=== PATIENT | female | born 1985 | race Caucasian/White ===

== ENCOUNTER 2018-10-17 20:01 | Emergency (ER) | payer BC ==
[2018-10-17 20:33] VITALS: BP 109/63; PULSE 50; RESP 20; TEMP 97.9
--- NOTE | 2018-10-17 21:22 | ED ---
Burn/Smoke HPI - General Chief complaint: Burn/Smoke Inhalation Stated complaint: Burn Lft Breast Time Seen by Provider: 10/17/18 20:36 Source: patient Mode of arrival: wheelchair Limitations: no limitations - History of Present Illness Initial comments: 33-year-old female patient presents to the emergency department today for evaluation of a burn to the left nipple. Patient is 6 weeks and is breast-feeding. States she developed mastitis to the left breast within the last week. Patient states she was applying hot compresses and Epsom salt soaks however they water was too high and she burned of the nipple on the left breast. Patient states that she was seen at urgent care on Tuesday and given prescription for Keflex as well as mupirocin ointment to apply to the burn. Patient states that she has been unable to express milk from the breast this evening and is concerned it is scabbed over. Patient denies any fevers or chills with this. States she is having some discomfort related to engorgement. She denies any fever or chills with this. Denies any drainage from the wound. Patient denies any recent rash, shortness breath, chest pain, abdominal pain, nausea, vomiting, diarrhea, constipation, back pain, numbness, tingling, dizziness, weakness, hematuria, dysuria, urinary urgency, urinary frequency, headache, visual changes, or any other complaints. - Related Data Home Medications Medication Instructions Recorded Confirmed Baclofen 5 mg PO DAILY 10/17/18 10/17/18 Cephalexin [Keflex] 500 mg PO Q6HR 10/17/18 10/17/18 Gabapentin [Neurontin] 100 mg PO BID 10/17/18 10/17/18 Oxybutynin ER [Ditropan Xl] 15 mg PO BID 10/17/18 10/17/18 Allergies Allergy/AdvReac Type Severity Reaction Status Date / Time No Known Allergies Allergy Verified 10/17/18 20:57 Review of Systems ROS Statement: Those systems with pertinent positive or pertinent negative responses have been documented in the HPI. ROS Other: All systems not noted in ROS Statement are negative. Past Medical History Additional Past Medical History / Comment(s): spinal cord injury History of Any Multi-Drug Resistant Organisms: None Reported Additional Past Surgical History / Comment(s): spinal fusion, spleen embolism Past Psychological History: No Psychological Hx Reported Smoking Status: Never smoker Past Alcohol Use History: None Reported Past Drug Use History: None Reported General Exam Limitations: no limitations General appearance: alert, in no apparent distress, other (This is a well- developed, well-nourished adult female patient in no acute distress. Vital signs upon presentation are temperature 97.9F, pulse 50, respirations 20, blood pressure 109/63, pulse ox 100% on room air.) Respiratory exam: Present: normal lung sounds bilaterally. Absent: respiratory distress, wheezes, rales, rhonchi, stridor Cardiovascular Exam: Present: regular rate, normal rhythm, normal heart sounds. Absent: systolic murmur, diastolic murmur, rubs, gallop, clicks Neurological exam: Present: alert, oriented X3, CN II-XII intact Psychiatric exam: Present: normal affect, normal mood Skin exam: Present: warm, dry, intact, normal color. Absent: rash Expanded 1 - There is a superficial partial-thickness burn noted to the left area over and the nipple. No current drainage however there is granulation tissue with overlying white discharge. Scabbing noted over the nipple. Erythema noted to follow duct paths at 11 O'clock and 1 o'clock on the breast. Course Vital Signs 10/17/18 20:28 Temperature 97.9 F Pulse Rate 50 L Respiratory 20 Rate Blood Pressure 109/63 O2 Sat by Pulse 100 Oximetry Medical Decision Making - Medical Decision Making 33-year-old female patient presented to the emergency department today for evaluation of burn to the left nipple. Physical examination did reveal healing superficial partial thickness burn to the left areola and nipple. Patient is concerned she is having decreased output from the left breast. Patient was educated regarding wound care, given prescription for arcus also her dressings which she requested, did inform patient of risk of skin discoloration with use of this dressing. She was instructed to apply warm compresses and to massage the breast to help milk expression. She is instructed to follow-up with the [facility] and content management consultant for recheck as soon as possible. She is urged to continue taking the Keflex for infection. Return parameters were discussed in detail. She verbalizes understanding and agrees with this plan. Disposition Clinical Impression: Burn of breast, left, second degree Disposition: HOME SELF-CARE Condition: Good Instructions (If sedation given, give patient instructions): Second Degree Burn (ED) Additional Instructions: Use dressings as directed. Follow up with your OBGYN as soon as possible. Apply warm compresses to the breast and perform massage to the breast to aid in expressing milk. Return to the emergency department for any new, worse, or co ncerning symptoms. Is patient prescribed a controlled substance at d/c from ED?: No Referrals: Anselmo Tiwari MD [Primary Care Provider] - 1-2 days Time of Disposition: 21:22
== END 2018-10-17 21:25 | disposition home or self-care (01) ==
LOC: EC 20:01
DX: O90.89 Other complications of the puerperium, not elsewhere classified (principal); T21.21XA Burn of second degree of chest wall, initial encounter; Z79.899 Other long term (current) drug therapy; X08.8XXA Exposure to other specified smoke, fire and flames, initial encounter
CPT/HCPCS: 99282

== ENCOUNTER 2020-03-04 10:58 | Inpatient (IN) | payer BC ==
[2020-03-04] MEDS ORDERED: SODIUM CHLORIDE 0.9% 1,000 ML IV ONE ×2 (11:15→14:33)
--- NOTE | 2020-03-04 11:24 | ED ---
General Adult HPI - General Chief complaint: Recheck/Abnormal Lab/Rx Stated complaint: 19 Weeks Preg, Low BP Time Seen by Provider: 03/04/20 11:07 Source: patient, RN notes reviewed, old records reviewed Mode of arrival: wheelchair Limitations: physical limitation - History of Present Illness Initial comments: 35-year-old female patient past history of spinal cord injury with rales cyst and decreased sensation from the chest down presents ED for evaluation. Patient is a who is approximately 19 weeks gestation. She reports that the last 2 days she states that she feels as if she is getting a urinary tract infection. Her urine has been slightly discolored. She reports that she went to urgent care today and her blood pressure was 90 systolically and heart rate was elevated. She also reports that she had a fever this morning 102F. She did take Tylenol. Denies any cough or congestion. Denies being around any sick people and states she does not believe that she could've acquired Covid. Denies any abdominal pain or vaginal bleeding. Systemic: Pt denies fatigue, rash. Pt denies weakness, night sweats, weight loss. Neuro: Pt denies headache, visual disturbances, syncope or pre-syncope. HEENT: Pt denies ocular discharge or irritation, otalgia, rhinorrhea, pharyngitis or notable lymphadenopathy. Cardiopulmonary: Pt denies chest pain, SOB, heart palpitations, dyspnea on exertion. Abdominal/GI: Pt denies abdominal pain, n/v/d. MSK: Pt denies myalgia, loss of strength or function in extremities. Neuro: Pt denies new onset weakness, paresthesias. - Related Data Home Medications Medication Instructions Recorded Confirmed Gabapentin [Neurontin] 100 mg PO BID 10/17/18 03/04/20 Oxybutynin ER [Ditropan Xl] 15 mg PO BID 10/17/18 03/04/20 Baclofen 10 mg PO BID 03/04/20 03/04/20 Cbp-Kquf-Nzqlf Acid 1 cap PO DAILY 03/04/20 03/04/20 [-U Capsule (formulary)] Allergies Allergy/AdvReac Type Severity Reaction Status Date / Time No Known Allergies Allergy Verified 03/04/20 13:15 Review of Systems ROS Statement: Those systems with pertinent positive or pertinent negative responses have been documented in the HPI. ROS Other: All systems not noted in ROS Statement are negative. Past Medical History Additional Past Medical History / Comment(s): spinal cord injury History of Any Multi-Drug Resistant Organisms: None Reported Additional Past Surgical History / Comment(s): spinal fusion, spleen embolism Past Psychological History: No Psychological Hx Reported Smoking Status: Never smoker Past Alcohol Use History: None Reported Past Drug Use History: None Reported General Exam - General Exam Comments Initial Comments: Constitutional: NAD, AOX3, Pt has pleasant affect. HEENT: NC/AT, trachea midline, neck supple, no lymphadenopathy. External ears appear normal, without discharge. Mucous membranes moist. Eyes PERRLA, EOM intact. There is no scleral icterus. No pallor noted. Cardiopulmonary: RRR, no murmurs, rubs or gallops, no JVD noted. Lungs CTAB in anterior and posterior welch. No peripheral edema. Abdominal exam: Abdomen soft and non-distended. Abdomen non-tender to palpation in all 4 quadrants. Bowel sounds active in LLQ. No hepatosplenomegaly. No ecchymosis Neuro: CN II-XII grossly intact. No nuchal rigidity. No raccon eyes, no espinoza sign, no hemotympanum. No cervical spinal tenderness. MSK: lower and upper extremities examined. No erythema or signs of infection. No areas of tenderness. The gluteal region examined no ulcers or signs of infection. Limitations: physical limitation Course Vital Signs 03/04/20 03/04/20 03/04/20 10:59 12:04 12:35 Temperature 98.3 F 99.2 F 103.1 F H Pulse Rate 94 Respiratory 16 Rate Blood Pressure 105/58 O2 Sat by Pulse 100 Oximetry 03/04/20 14:20 Temperature 103.2 F H Pulse Rate Respiratory Rate Blood Pressure O2 Sat by Pulse Oximetry Medical Decision Making - Medical Decision Making 35-year-old female patient presents to ED for evaluation. Patient has been having some urinary changes last few days. 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 Patient will signs initially stable. He did become febrile and patient was administered antipyretics. Physical exam didn't display acute pathology. Laboratory investigations significant for leukocytosis and urinary tract infection. Ultrasound displayed viable . Patient initiated on IV antibiotics and fluids will be admitted for urinary tract infection, sepsis. COVID test pending. Patient has no upper respiratory symptoms. Case discussed in depth with Dr. Barkley. - Lab Data Result diagrams: 03/04/20 11:41 03/04/20 11:41 Lab Results 03/04/20 03/04/20 03/04/20 Range/Units 11:41 11:41 11:41 WBC 23.2 H (3.8-10.6) k/uL RBC 3.93 (3.80-5.40) m/uL Hgb 12.1 (11.4-16.0) gm/dL Hct 36.8 (34.0-46.0) % MCV 93.6 (80.0-100.0) fL MCH 30.7 (25.0-35.0) pg MCHC 32.8 (31.0-37.0) g/dL RDW 13.0 (11.5-15.5) % Plt Count 350 (150-450) k/uL Neutrophils % 89 % Lymphocytes % 5 % Monocytes % 5 % Eosinophils % 0 % Basophils % 0 % Neutrophils # 20.8 H (1.3-7.7) k/uL Lymphocytes # 1.2 (1.0-4.8) k/uL Monocytes # 1.1 H (0-1.0) k/uL Eosinophils # 0.1 (0-0.7) k/uL Basophils # 0.1 (0-0.2) k/uL Sodium 133 L (137-145) mmol/L Potassium 3.6 (3.5-5.1) mmol/L Chloride 102 (98-107) mmol/L Carbon Dioxide 20 L (22-30) mmol/L Anion Gap 11 mmol/L BUN 6 L (7-17) mg/dL Creatinine 0.52 (0.52-1.04) mg/dL Est GFR (CKD-EPI)AfAm >90 (>60 ml/min/1.73 sqM) Est GFR (CKD-EPI)NonAf >90 (>60 ml/min/1.73 sqM) Glucose 77 (74-99) mg/dL Calcium 9.0 (8.4-10.2) mg/dL Total Bilirubin 0.6 (0.2-1.3) mg/dL AST 23 (14-36) U/L ALT 12 (4-34) U/L Alkaline Phosphatase 79 (38-126) U/L Total Protein 6.9 (6.3-8.2) g/dL Albumin 3.9 (3.5-5.0) g/dL Urine Color Light Yellow Urine Appearance Clear (Clear) Urine pH 6.0 (5.0-8.0) Ur Specific [place] 1.003 (1.001-1.035) Urine Protein Negative (Negative) Urine Glucose (UA) Negative (Negative) Urine Ketones 1+ H (Negative) Urine Blood Negative (Negative) Urine Nitrite Negative (Negative) Urine Bilirubin Negative (Negative) Urine Urobilinogen <2.0 (<2.0) mg/dL Ur Leukocyte Esterase Large H (Negative) Urine RBC <1 (0-5) /hpf Urine WBC 15 H (0-5) /hpf Ur Squamous Epith Cells 1 (0-4) /hpf Urine Mucus Rare H (None) /hpf Disposition Clinical Impression: UTI (urinary tract infection), Fever, Disposition: ADMITTED IP TO THIS [facility] Condition: Serious Is patient prescribed a controlled substance at d/c from ED?: No Referrals: Anselmo Tiwari MD [Primary Care Provider] - 1-2 days
[2020-03-04] MEDS ORDERED: cefTRIAXone IN SWFI 1,000 MG/10 ML SYRINGE IVP STA ×2 (11:40→12:57)
[2020-03-04 12:34] LABS: Basophils # (A) 0.1 k/uL (0-0.2); Basophils % (A) 0 %; Eosinophils # (A) 0.1 k/uL (0-0.7); Eosinophils % (A) 0 %; HCT 36.8 % (34.0-46.0); HGB 12.1 gm/dL (11.4-16.0); Lymphocytes # (A) 1.2 k/uL (1.0-4.8); Lymphocytes % (A) 5 %; MCH 30.7 pg (25.0-35.0); MCHC 32.8 g/dL (31.0-37.0); MCV 93.6 fL (80.0-100.0); Mean Platelet Volume 7.7; Monocytes # (A) 1.1 k/uL (0-1.0); Monocytes % (A) 5 %; Neutrophils # (A) 20.8 k/uL (1.3-7.7); Neutrophils % (A) 89 %; Platelet Count 350 k/uL (150-450); RBC 3.93 m/uL (3.80-5.40); WBC 23.2 k/uL (3.8-10.6)
[2020-03-04] MEDS ORDERED: ACETAMINOPHEN TAB 325 MG TAB PO STA ×2 (12:37→13:52)
[2020-03-04 12:41] LABS: ALT 12 U/L (4-34); AST 23 U/L (14-36); African American GFR (CKD) >90 (>60 ml/min/1.73 sqM); Albumin 3.9 g/dL (3.5-5.0); Alkaline Phosphatase 79 U/L (38-126); Anion Gap 11 mmol/L; Blood Urea Nitrogen 6 mg/dL (7-17); Carbon Dioxide 20 mmol/L (22-30); Chloride 102 mmol/L (98-107); Glucose 77 mg/dL (74-99); Non-African American GFR(CKD) >90 (>60 ml/min/1.73 sqM); Potassium 3.6 mmol/L (3.5-5.1); Sodium 133 mmol/L (137-145); Total Bilirubin 0.6 mg/dL (0.2-1.3); Total Protein 6.9 g/dL (6.3-8.2)
[2020-03-04 12:48] LABS: Appearance,Urine Clear (Clear); Bilirubin,Urine Negative (Negative); Blood,Urine Negative (Negative); Color,Urine Light Yellow; Glucose,Urine (UA) Negative (Negative); Ketones,Urine 1+ (Negative); Leukocyte Esterase,Urine Large (Negative); Mucus,Urine Rare /hpf; Nitrite,Urine Negative (Negative); Protein,Urine Negative (Negative); RBC,Urine <1 /hpf (0-5); Specific Gravity,Urine 1.003 (1.001-1.035); Squamous Epithelial Cell,Urine 1 /hpf (0-4); Urobilinogen,Urine <2.0 mg/dL (<2.0); WBC,Urine 15 /hpf (0-5)
--- NOTE | 2020-03-04 13:29 | US ---
EXAMINATION TYPE: US OB >= 14 wk fetus DATE OF EXAM: 03/04/2020 COMPARISON: None CLINICAL HISTORY: fever TECHNIQUE: Transabdominal (TA) GESTATIONAL AGE / DATING Physician Established: (19 weeks/2 days) EDC: 07/27/2020 Dates by Current Scan: (19 weeks/5 days) EDC: 07/24/2020 Beta HCG (if available): Not available at this time SURVEY IUP: Single PLACENTA: Anterior PREVIA: No Previa JAISON: 14.9 cm Normal CERVICAL LENGTH (transabdominal: norm > 3.0cm): 3.5 cm BIOMETRY PRESENTATION: Transverse lie with head to maternal right BPD: 4.5 cm 19 weeks / 4 days HC: 16.9 cm 19 weeks / 4 days AC: 14.6 cm 20 weeks / 0 days FL: 3.0 cm 19 weeks / 2 days ESTIMATED WEIGHT IN GRAMS: 301 grams ESTIMATED WEIGHT IN LBS/OZ: 0 lbs. 11 oz. WEIGHT PERCENTAGE BASED ON ESTABLISHED DATES: 64% HC/AC: Normal FL/AC: Normal HEART RATE: 150 bpm RHYTHM: Normal Single live intrauterine gestation is present. Transverse presentation seen currently. No ultrasound evidence for placenta previa. Amniotic fluid index calculated within normal limits. No cervical thinn ing noted. biometry measurements concordant and within normal limits. IMPRESSION: As above.
[2020-03-04] MEDS: SODIUM CHLORIDE 0.9% 1,000 ML IV SCH (14:36)
[2020-03-04] MEDS ORDERED: ONDANSETRON 4 MG/2 ML VIAL IVP PRN (18:15)
[2020-03-04] MEDS: ACETAMINOPHEN TAB 325 MG TAB PO PRN ×2 (18:18→23:52)
[2020-03-04] MEDS: BACLOFEN 10 MG TAB PO SCH (20:27)
[2020-03-04] MEDS: OXYBUTYNIN 15 MG TAB.ER.24 PO SCH (20:27)
[2020-03-04] MEDS: GABAPENTIN 100 MG CAP PO SCH (20:27)
[2020-03-05] MEDS: SODIUM CHLORIDE 0.9% 1,000 ML IV SCH ×2 (00:02→17:25)
--- NOTE | 2020-03-05 00:44 | P.HPIM ---
History of Present Illness H&P Date: 03/04/20 Chief Complaint: Fever Patient is a 34-year-old female with a known history of spinal cord injury, spinal fusion and splenic embolization and is currently 19 weeks intrauterine came to ER due to urinary tract infection. Patient initially went to urgent care facility due to increasing urine frequency and slightly discolored urine and she felt like she was getting urinary tract infection. Patient was found to have tachycardia and hypotension and was referred to ER for further management. Patient was febrile with T-max of 102 F. Denied any lower abdominal pain. No complaints of chest pain or shortness of breath. Patient does have nausea. T- max on admission was 103.2 and was tachycardic. Laboratory data showed WBC 23.2 Hemoglobin 12.1 and platelets 350 Sodium 133, potassium 3.6, BUN 16 creatinine 0.52 Lactic acid 0.6 Urinalysis showed large leukocyte esterase 1+ ketones and 15 WBCs. ultrasound was done showed single live intrauterine gestation is present. Review of Systems Constitutional: Patient does have fever. No chills. . No generalized weakness or weight loss. Abdomen: Patient denied nausea vomiting and diarrhea and abdominal pain. Cardiovascular: Patient denies any chest pain or short of breath no palpitations. Respiratory: patient denied any cough is from production. No shortness of breath Neurologic: Patient denied any numbness or tingling headache. Musculoskeletal: Patient denies any complaints of joint swelling or deformity. Skin: Negative Psychiatric: Negative Endocrine: No heat or cold intolerance. No recent weight gain. Genitourinary: No dysuria or hematuria. increased urinary frequency All other 14 point ROS negative except the above Past Medical History Additional Past Medical History / Comment(s): spinal cord injury History of Any Multi-Drug Resistant Organisms: None Reported Additional Past Surgical History / Comment(s): spinal fusion, spleen embolism Past Psychological History: No Psychological Hx Reported Smoking Status: Never smoker Past Alcohol Use History: None Reported Past Drug Use History: None Reported - Past Family History Mother Family Medical History: Diabetes Mellitus, Hypertension Medications and Allergies Home Medications Medication Instructions Recorded Confirmed Type Gabapentin [Neurontin] 100 mg PO BID 10/17/18 03/04/20 History Oxybutynin ER [Ditropan Xl] 15 mg PO BID 10/17/18 03/04/20 History Baclofen 10 mg PO BID 03/04/20 03/04/20 History Vnu-Hbgr-Hrvik Acid 1 cap PO DAILY 03/04/20 03/04/20 History [-U Capsule (formulary)] Allergies Allergy/AdvReac Type Severity Reaction Status Date / Time No Known Allergies Allergy Verified 03/04/20 13:15 Physical Exam Vitals: Vital Signs Temp Pulse Resp BP Pulse Ox 03/04/20 16:02 99.2 F 100 16 101/50 98 03/04/20 14:20 103.2 F H 03/04/20 12:35 103.1 F H 03/04/20 12:04 99.2 F 03/04/20 10:59 98.3 F 94 16 105/58 100 Intake and Output 03/04/20 03/04/20 03/04/20 06:59 14:59 22:59 Other: Weight 65.771 kg PHYSICAL EXAMINATION: Patient is lying in the bed comfortably, no acute distress, awake alert and oriented.. HEENT: Normocephalic. Neck is supple. Pupils reactive. Nostrils clear. Oral cavity is moist. Ears reveal no drainage. Neck reveals no JVD, carotid bruits, or thyromegaly. CHEST EXAMINATION: Trachea is central. Symmetrical expansion. Lung welch clear to auscultation and percussion. CARDIAC: Normal S1, S2 with no gallops. No murmurs ABDOMEN: Soft. Bowel sounds normal. No organomegaly. No abdominal bruits. Extremities: reveal no edema. No clubbing or cyanosis Neurologically awake, alert, oriented x3 with well-coordinated movements. No gross neurological deficit. Decreased sensation in the bilateral lower extremities. Skin: No rash or skin lesions. Psychiatric: Coperative. Nonsuicidal Musculoskeletal: No joint swelling or deformity. Normal range of motion. Results CBC & Chem 7: 03/04/20 11:41 03/04/20 11:41 Labs: Abnormal Lab Results - Last 24 Hours (Table) 03/04/20 03/04/20 03/04/20 Range/Units 11:41 11:41 11:41 WBC 23.2 H (3.8-10.6) k/uL Neutrophils # 20.8 H (1.3-7.7) k/uL Monocytes # 1.1 H (0-1.0) k/uL Sodium 133 L (137-145) mmol/L Carbon Dioxide 20 L (22-30) mmol/L BUN 6 L (7-17) mg/dL Urine Ketones 1+ H (Negative) Ur Leukocyte Esterase Large H (Negative) Urine WBC 15 H (0-5) /hpf Urine Mucus Rare H (None) /hpf Thrombosis Risk Factor Assmnt - DVT/VTE Prophylaxis DVT/VTE Prophylaxis: Pharmacologic Prophylaxis ordered Assessment and Plan Assessment: Acute urinary tract infection Sepsis secondary to urine tract infection 19-week intrauterine History of spinal cord injury and decreased sensation from the chest down History of splenic embolization DVT prophylaxis with early ambulation Plan: Patient will be continued on IV hydration and antibiotics for home ceftriaxone. Follow-up urine culture reports. Continue with home medications and follow-up closely. Discussed with the patient and her family at bedside in detail. Time with Patient: Greater than 30
[2020-03-05 06:57] LABS: Basophils % (A) 0 %; Eosinophils % (A) 0 %; HCT 30.6 % (34.0-46.0); Lymphocytes # (A) 1.9 k/uL (1.0-4.8); Lymphocytes % (A) 9 %; MCH 30.8 pg (25.0-35.0); MCHC 32.6 g/dL (31.0-37.0); MCV 94.4 fL (80.0-100.0); Mean Platelet Volume 7.2; Monocytes # (A) 0.9 k/uL (0-1.0); Monocytes % (A) 4 %; Neutrophils # (A) 18.4 k/uL (1.3-7.7); Neutrophils % (A) 86 %; Platelet Count 282 k/uL (150-450); RBC 3.24 m/uL (3.80-5.40); RDW 13.2 % (11.5-15.5); WBC 21.5 k/uL (3.8-10.6)
[2020-03-05 07:05] LABS: African American GFR (CKD) >90 (>60 ml/min/1.73 sqM); Anion Gap 5 mmol/L; Blood Urea Nitrogen 3 mg/dL (7-17); Calcium 7.3 mg/dL (8.4-10.2); Carbon Dioxide 18 mmol/L (22-30); Chloride 112 mmol/L (98-107); Glucose 80 mg/dL (74-99); Non-African American GFR(CKD) >90 (>60 ml/min/1.73 sqM); Potassium 3.2 mmol/L (3.5-5.1); Sodium 135 mmol/L (137-145)
[2020-03-05] MEDS: ACETAMINOPHEN TAB 325 MG TAB PO PRN ×3 (07:12→20:55)
[2020-03-05] MEDS: BACLOFEN 10 MG TAB PO SCH ×2 (08:48→20:55)
[2020-03-05] MEDS: GABAPENTIN 100 MG CAP PO SCH ×2 (08:48→20:56)
[2020-03-05] MEDS: OXYBUTYNIN 15 MG TAB.ER.24 PO SCH ×2 (08:50→21:35)
[2020-03-05] MEDS: PRENATAL VIT-IRON-FOLIC ACID 1 EACH CAP PO SCH (08:50)
[2020-03-05] MEDS ORDERED: Potassium Replacement Protocol 1 EACH MISC MISCELLANE PRN (15:34)
--- NOTE | 2020-03-05 21:06 | US ---
EXAMINATION TYPE: US kidneys/renal and bladder DATE OF EXAM: 03/05/2020 COMPARISON: US 2010 CLINICAL HISTORY: UTI. UTI. Hx known atrophic left kidney. Patient is 19 weeks . EXAM MEASUREMENTS: Right Kidney: 13.2 x 7.2 x 5.7 cm Left Kidney: Not visualized Right Kidney: Measures enlarged. Hypoechoic, mixed area seen lower pole measurin.7 x 1.5 x 1.4 cm . Left Kidney: Not visualized. Unable to visualize spleen. Bladder: Appears anechoic. Not fully distended. Bilateral Jets seen: Right jet seen IMPRESSION: Left kidney not visualized. Right kidney shows no evidence of mass or obstruction. There is right-kaylen ed ureteral jet. No left side ureteral jet. Appearance of the right kidney consistent with compensato ry hypertrophy.
[2020-03-06] MEDS: SODIUM CHLORIDE 0.9% 1,000 ML IV SCH ×2 (01:43→05:45)
[2020-03-06 07:28] LABS: HCT 29.5 % (34.0-46.0); HGB 9.5 gm/dL (11.4-16.0); MCH 30.5 pg (25.0-35.0); MCHC 32.3 g/dL (31.0-37.0); MCV 94.4 fL (80.0-100.0); Mean Platelet Volume 7.4; Platelet Count 290 k/uL (150-450); RBC 3.12 m/uL (3.80-5.40); RDW 13.4 % (11.5-15.5); WBC 17.7 k/uL (3.8-10.6)
[2020-03-06 07:57] LABS: African American GFR (CKD) >90 (>60 ml/min/1.73 sqM); Anion Gap 4 mmol/L; Blood Urea Nitrogen 3 mg/dL (7-17); Calcium 7.7 mg/dL (8.4-10.2); Carbon Dioxide 20 mmol/L (22-30); Chloride 112 mmol/L (98-107); Glucose 65 mg/dL (74-99); Non-African American GFR(CKD) >90 (>60 ml/min/1.73 sqM); Potassium 2.9 mmol/L (3.5-5.1); Sodium 136 mmol/L (137-145)
[2020-03-06 08:18] VITALS: RESP 16
[2020-03-06] MEDS: OXYBUTYNIN 15 MG TAB.ER.24 PO SCH (09:08)
[2020-03-06] MEDS: GABAPENTIN 100 MG CAP PO SCH (09:08)
[2020-03-06] MEDS: BACLOFEN 10 MG TAB PO SCH (09:08)
[2020-03-06] MEDS: ACETAMINOPHEN TAB 325 MG TAB PO PRN (09:08)
[2020-03-06] MEDS: PRENATAL VIT-IRON-FOLIC ACID 1 EACH CAP PO SCH (09:08)
[2020-03-06] MEDS: POTASSIUM CHLORIDE ER 20 MEQ TAB.ER PO SCH ×3 (12:44→15:35)
[2020-03-06 13:22] VITALS: BP 95/45; PULSE 62; TEMP 97.5
--- NOTE | 2020-03-18 21:37 | P.PN ---
Subjective Progress Note Date: 03/05/20 Principal diagnosis: Sepsis secondary to urine tract infection Patient is a 34-year-old female with a known history of spinal cord injury, spinal fusion and splenic embolization and is currently 19 weeks intrauterine came to ER due to urinary tract infection. Patient initially went to urgent care facility due to increasing urine frequency and slightly discolored urine and she felt like she was getting urinary tract infection. Patient was found to have tachycardia and hypotension and was referred to ER for further management. Patient was febrile with T-max of 102 F. Denied any lower abdominal pain. No complaints of chest pain or shortness of breath. Patient does have nausea. T- max on admission was 103.2 and was tachycardic. Laboratory data showed WBC 23.2 Hemoglobin 12.1 and platelets 350 Sodium 133, potassium 3.6, BUN 16 creatinine 0.52 Lactic acid 0.6 Urinalysis showed large leukocyte esterase 1+ ketones and 15 WBCs. ultrasound was done showed single live intrauterine gestation is present. Patient is currently lying in the bed comfortably. No complaints of abdominal pain. Patient is afebrile but last night T-max of 102 F. Leukocytosis improved with WBC count 21.5 today. Potassium level is 3.2. No complaints of abdominal pain. No nausea vomiting or diarrhea. Tolerating oral diet slowly. Patient is still feeling weak. Urine culture showed gram-negative bacilli and follow-up final culture report. Current medications reviewed. Objective - Vital Signs Vital signs: Vital Signs Temp 97.6 F 03/05/20 08:00 Pulse 81 03/05/20 16:00 Resp 16 03/05/20 16:00 BP 97/48 03/05/20 16:00 Pulse Ox 99 03/05/20 16:00 Intake & Output 03/05/20 03/05/20 03/06/20 06:59 18:59 06:59 Intake Total 960 Balance 960 Weight 71.5 kg Intake: Oral 960 Other: Voiding Method Toilet Toilet # Voids 2 4 - Exam PHYSICAL EXAMINATION: Patient is lying in the bed comfortably, no acute distress, awake alert and oriented.. HEENT: Normocephalic. Neck is supple. Pupils reactive. Nostrils clear. Oral cavity is moist. Ears reveal no drainage. Neck reveals no JVD, carotid bruits, or thyromegaly. CHEST EXAMINATION: Trachea is central. Symmetrical expansion. Lung welch clear to auscultation and percussion. CARDIAC: Normal S1, S2 with no gallops. No murmurs ABDOMEN: Soft. Bowel sounds normal. No organomegaly. No abdominal bruits. Extremities: reveal no edema. No clubbing or cyanosis Neurologically awake, alert, oriented x3 with well-coordinated movements. No gross neurological deficit. Decreased sensation in the bilateral lower extremities. Skin: No rash or skin lesions. Psychiatric: Coperative. Nonsuicidal Musculoskeletal: No joint swelling or deformity. Normal range of motion. - Labs CBC & Chem 7: 03/06/20 07:14 03/06/20 07:14 Labs: Abnormal Lab Results - Last 24 Hours (Table) 03/05/20 03/05/20 Range/Units 06:19 06:19 WBC 21.5 H (3.8-10.6) k/uL RBC 3.24 L (3.80-5.40) m/uL Hgb 10.0 L D (11.4-16.0) gm/dL Hct 30.6 L (34.0-46.0) % Neutrophils # 18.4 H (1.3-7.7) k/uL Sodium 135 L (137-145) mmol/L Potassium 3.2 L (3.5-5.1) mmol/L Chloride 112 H (98-107) mmol/L Carbon Dioxide 18 L (22-30) mmol/L BUN 3 L (7-17) mg/dL Calcium 7.3 L (8.4-10.2) mg/dL Microbiology - Last 24 Hours (Table) 03/04/20 11:41 Blood Culture - Preliminary Blood No Growth after 24 hours 03/04/20 11:41 Urine Culture - Preliminary Urine,Voided Assessment and Plan Assessment: Acute urinary tract infection Sepsis secondary to urine tract infection 19-week intrauterine History of spinal cord injury and decreased sensation from the chest down History of splenic embolization DVT prophylaxis with early ambulation Plan: Patient will be continued on IV hydration and antibiotics for home ceftriaxone. Urine culture showed gram-negative bacilli. Leukocytosis improving. Follow-up final urine culture report. Discussed with the patient and her family at bedside in detail. Time with Patient: Greater than 30
--- NOTE | 2020-03-18 21:45 | P.DS ---
Providers Date of admission: 03/04/20 15:12 Expected date of discharge: 03/06/20 Attending physician: Milagros Silverman Primary care physician: Anselmo [facility] Course: Discharge diagnosis Acute urinary tract infection Sepsis secondary to urine tract infection 19-week intrauterine History of spinal cord injury and decreased sensation from the chest down History of splenic embolization DVT prophylaxis with early ambulation Hospital course Patient is a 34-year-old female with a known history of spinal cord injury, spinal fusion and splenic embolization and is currently 19 weeks intrauterine came to ER due to urinary tract infection. Patient initially went to urgent care facility due to increasing urine frequency and slightly discolored urine and she felt like she was getting urinary tract infection. Patient was found to have tachycardia and hypotension and was referred to ER for further management. Patient was febrile with T-max of 102 F. Denied any lower abdominal pain. No complaints of chest pain or shortness of breath. Patient does have nausea. T- max on admission was 103.2 and was tachycardic. Laboratory data showed WBC 23.2 Hemoglobin 12.1 and platelets 350 Sodium 133, potassium 3.6, BUN 16 creatinine 0.52 Lactic acid 0.6 Urinalysis showed large leukocyte esterase 1+ ketones and 15 WBCs. ultrasound was done showed single live intrauterine gestation is present. 03/05/2020 Patient is currently lying in the bed comfortably. No complaints of abdominal pain. Patient is afebrile but last night T-max of 102 F. Leukocytosis impro berenice with WBC count 21.5 today. Potassium level is 3.2. No complaints of abdominal pain. No nausea vomiting or diarrhea. Tolerating oral diet slowly. Patient is still feeling weak. Urine culture showed gram-negative bacilli and follow-up final culture report. 03/06/2020 Patient is currently awake alert and oriented x3. No complaints of fever or chills. Leukocytosis is improving. Final urine culture is pending at this time. Patient states that she is feeling better and wants to be discharged home. Patient does have appointment with [employer] in the next 1 to 2 days. Patient was strongly recommended to follow-up with urine culture reports and adjust medications as needed. PHYSICAL EXAMINATION: Patient is lying in the bed comfortably, no acute distress, awake alert and oriented.. HEENT: Normocephalic. Neck is supple. Pupils reactive. Nostrils clear. Oral cavity is moist. Ears reveal no drainage. Neck reveals no JVD, carotid bruits, or thyromegaly. CHEST EXAMINATION: Trachea is central. Symmetrical expansion. Lung welch clear to auscultation and percussion. CARDIAC: Normal S1, S2 with no gallops. No murmurs ABDOMEN: Soft. Bowel sounds normal. No organomegaly. No abdominal bruits. Extremities: reveal no edema. No clubbing or cyanosis Neurologically awake, alert, oriented x3 with well-coordinated movements. No gross neurological deficit. Decreased sensation in the bilateral lower extremities. Skin: No rash or skin lesions. Psychiatric: Coperative. Nonsuicidal Musculoskeletal: No joint swelling or deformity. Normal range of motion. Discharge vitals reviewed. Patient Condition at Discharge: Serious Plan - Discharge Summary New Discharge Prescriptions: New Cephalexin [Keflex] 500 mg PO Q8HR 4 Days #12 cap Continue Oxybutynin ER [Ditropan Xl] 15 mg PO BID Gabapentin [Neurontin] 100 mg PO BID Uvf-Afcu-Uqhej Acid [-U Capsule (formulary)] 1 cap PO DAILY Baclofen 10 mg PO BID Discharge Medication List Gabapentin [Neurontin] 100 mg PO BID 10/17/18 [History] Oxybutynin ER [Ditropan Xl] 15 mg PO BID 10/17/18 [History] Baclofen 10 mg PO BID 03/04/20 [History] Xci-Jyyu-Xvfme Acid [-U Capsule (formulary)] 1 cap PO DAILY 03/04/20 [History] Cephalexin [Keflex] 500 mg PO Q8HR 4 Days #12 cap 03/06/20 [Rx] Follow up Appointment(s)/Referral(s): Anselmo Tiwari MD [Primary Care Provider] - 1-2 days (Office request pt to call to make appt) Patient Instructions/Handouts: Sepsis (GEN), Hypotension (DC), Urinary Tract Infection in (DC) Discharge Disposition: HOME SELF-CARE
== END 2020-03-06 17:42 | disposition home or self-care (01) | DRG 831 ==
LOC: EC 10:58 → 3SCARD 15:12
PROVIDERS: ADMIT Internal Medicine; ATTEND Internal Medicine
DX: O98.812 Other maternal infectious and parasitic diseases complicating pregnancy, second trimester (principal); A41.9 Sepsis, unspecified organism; G82.20 Paraplegia, unspecified; O23.42 Unspecified infection of urinary tract in pregnancy, second trimester; Z20.828 Contact with and (suspected) exposure to other viral communicable diseases; O99.352 Diseases of the nervous system complicating pregnancy, second trimester; Z79.899 Other long term (current) drug therapy; Z3A.19 19 weeks gestation of pregnancy; T14.8XXS Other injury of unspecified body region, sequela; Z83.3 Family history of diabetes mellitus; Z82.49 Family history of ischemic heart disease and other diseases of the circulatory system; Z98.1 Arthrodesis status
CPT/HCPCS: 36415; 76770; 76805; 80048; 80053; 81001; 83605; 85025; 85027; 87040; 87077; 87086; 87186; 96361; 96365; 96376; 99285

== ENCOUNTER → 2021-04-23 | Outpatient (CLI) | payer BC ==
[2021-04-23 19:18] LABS: Basophils # (A) 0.06 X 10*3/uL (0.00-0.10); Eosinophils # (A) 0.23 X 10*3/uL (0.04-0.35); Eosinophils % (A) 3.7 %; HCT 37.8 % (37.2-46.3); HGB 12.4 g/dL (12.0-15.0); Lymphocytes # (A) 2.74 X 10*3/uL (0.90-5.00); Lymphocytes % (A) 44.2 %; MCH 29.8 pg (27.0-32.0); MCHC 32.8 g/dL (32.0-37.0); MCV 90.9 fL (80.0-97.0); Mean Platelet Volume 10.4 fL (9.5-12.2); Monocytes # (A) 0.61 X 10*3/uL (0.20-1.00); Monocytes % (A) 9.8 %; Neutrophils # (A) 2.55 X 10*3/uL (1.80-7.70); Neutrophils % (A) 41.1 %; Platelet Count 336 X 10*3/uL (140-440); RBC 4.16 X 10*6/uL (4.10-5.20); RDW 13.5 % (11.5-14.5)
[2021-04-23 20:58] LABS: African American GFR (CKD) 134.7 (60.0-200.0); Albumin 4.2 g/dL (3.8-4.9); Albumin/Globulin Ratio 1.81 (1.60-3.17); Anion Gap 11.1 mmol/L (4.00-12.00); BUN/Creat Ratio 23.18 Ratio (12.00-20.00); Blood Urea Nitrogen 14.3 mg/dL (9.0-27.0); Calcium 9.2 mg/dL (8.7-10.3); Carbon Dioxide 23.8 mmol/L (21.6-31.8); Chol/HDL Ratio 2.82 Ratio; Globulin 2.3 g/dL (1.6-3.3); HDL Cholesterol 61.8 mg/dL (40.00-60.00); Non-African American GFR(CKD) 116.2 (60.0-200.0); Potassium 4.2 mmol/L (3.5-5.5); Total Bilirubin 0.3 mg/dL (0.30-1.20); Total Protein 6.6 g/dL (6.2-8.2); Triglycerides 56.2 mg/dL (0.00-149.00); VLDL Calculation 11.24 mg/dL (5.00-40.00)
== END | disposition home or self-care (01) ==
LOC: LABWHC1 11:50
PROVIDERS: ATTEND Physician Assistant
DX: S24.102S Unspecified injury at T2-T6 level of thoracic spinal cord, sequela (principal); X58.XXXS Exposure to other specified factors, sequela
CPT/HCPCS: 36415; 80053; 80061; 82306; 84443; 85025

== ENCOUNTER 2022-03-11 07:11 | Inpatient (IN) | payer BC ==
[2022-03-11] MEDS ORDERED: LABETALOL 5 MG/ML VIAL MDV IVP STA (07:31)
[2022-03-11] MEDS ORDERED: OXYTOCIN 10 UNIT/ML 1 ML VIAL IM PRN (07:32)
[2022-03-11] MEDS ORDERED: LIDOCAINE 0.5% (PF) 5 MG/ML (50 ML SDV) SQ PRN (07:32)
[2022-03-11] MEDS ORDERED: METHYLERGONOVINE 0.2 MG/ML 1 ML AMP IM PRN (07:32)
[2022-03-11] MEDS ORDERED: TERBUTALINE 1 MG/ML VIAL SQ PRN (07:32)
[2022-03-11] MEDS ORDERED: CARBOPROST TROMETHAMINE 250 MCG/ML 1 ML AMP IM PRN (07:32)
[2022-03-11] MEDS ORDERED: OXYTOCIN 30 UNITS/500 ML NS 30 UNIT in SALINE 1 500ML.BAG IV SCH ×2 (07:45→08:15)
[2022-03-11] MEDS ORDERED: diphenhydrAMINE 50 MG/ML 1 ML VIAL IVP PRN ×2 (08:15)
[2022-03-11] MEDS ORDERED: diphenhydrAMINE 50 MG CAP PO PRN (08:15)
[2022-03-11] MEDS ORDERED: diphenhydrAMINE 25 MG CAP PO PRN (08:15)
[2022-03-11] MEDS ORDERED: HYDROCORTISONE 2.5% RECTAL CREAM 30 GM TUBE RECTAL PRN (08:15)
[2022-03-11] MEDS ORDERED: SIMETHICONE 80 MG CHEWABLE PO PRN (08:15)
[2022-03-11] MEDS ORDERED: LANOLIN CREAM 5 GM TUBE TOPICAL PRN (08:15)
[2022-03-11] MEDS ORDERED: ACETAMINOPHEN TAB 325 MG TAB PO PRN (08:15)
[2022-03-11] MEDS ORDERED: BENZOCAINE/MENTHOL SPRAY 1 GM/SPRAY AEROSOL TOPICAL PRN (08:15)
[2022-03-11] MEDS ORDERED: ZOLPIDEM 5 MG TAB PO PRN (08:15)
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
[2022-03-11] MEDS: IBUPROFEN 600 MG TAB PO SCH ×4 (08:26→23:52)
[2022-03-11] MEDS: LACTATED RINGERS 1,000 ML IV SCH ×2 (08:29→19:40)
[2022-03-11 10:26] LABS: Basophils % (A) 0 %; Eosinophils % (A) 0 %; HCT 31.2 % (34.0-46.0); HGB 10.1 gm/dL (11.4-16.0); Hypochromasia Slight; Lymphocytes # (A) 1.5 k/uL (1.0-4.8); Lymphocytes % (A) 9 %; MCHC 32.6 g/dL (31.0-37.0); MCV 92.2 fL (80.0-100.0); Mean Platelet Volume 10.2; Monocytes # (A) 0.7 k/uL (0-1.0); Monocytes % (A) 4 %; Neutrophils # (A) 14.1 k/uL (1.3-7.7); Neutrophils % (A) 85 %; Platelet Count 305 k/uL (150-450); RBC 3.38 m/uL (3.80-5.40); RDW 13.7 % (11.5-15.5); WBC 16.6 k/uL (3.8-10.6)
[2022-03-11] MEDS ORDERED: SENNOSIDES-DOCUSATE SODIUM 1 EACH TAB PO SCH (20:00)
[2022-03-12 00:23] VITALS: RESP 16
[2022-03-12] MEDS: IBUPROFEN 600 MG TAB PO SCH (08:09)
[2022-03-12 09:26] VITALS: BP 122/71; PULSE 72; TEMP 98.2
--- NOTE | 2022-03-12 10:36 | P.DS ---
Providers Date of admission: 03/11/22 07:23 Expected date of discharge: 03/12/22 Attending physician: Ida Don Primary care physician: Stated None - Discharge Diagnosis(es) (1) Term Current Visit: Yes Status: Acute (2) SROM (spontaneous rupture of membranes) Current Visit: Yes Status: Acute (3) Active labor Current Visit: Yes Status: Acute (4) Paraplegia, unspecified Current Visit: Yes Status: Acute (5) AMA (advanced maternal age) multigravida 35+ Current Visit: Yes Status: Acute Hospital Course: 37-year-old G3 now P3 that presented to labor and delivery with complaints of spontaneous rupture of membranes. Patient is noted to be 38-6/7 weeks and had been receiving care with the uterus admission secondary to being paraplegic. Patient has been paraplegic since age 18 and is paralyzed from the nipple line down. Patient has 2 prior vaginal deliveries. Patient states was no concerns with her prior vaginal deliveries but states she does receive an epidural secondary to possibility of autonomic dystonia with increased pain. Patient is able to push. For full details on this patient please see the dictated history and physical and records from [facility]. Patient was admitted noted to be completely dilated and grossly ruptured. Patient was given nitrous for pain control as epidural was unavailable at that time secondary to complete dilation. Patient began pushing and had a normal sinus vaginal delivery of a viable male infant weight of 7 pounds 3.3 ounces at 1757, Apgars of 9 and 10 at one and 5 minutes respectively. Patient had an uncomplicated course. On this day #1 she is feeling well. She is wheelchair bound and self cath for urination. She states her pain is controlled. Her lochia is moderate. She would like discharge home. Patient Condition at Discharge: Good Plan - Discharge Summary New Discharge Prescriptions: No Action Oxybutynin ER [Ditropan Xl] 15 mg PO BID Gabapentin [Neurontin] 100 mg PO BID Wjp-Chcs-Kfmbh Acid [-U Capsule (formulary)] 1 cap PO DAILY Baclofen 10 mg PO BID Discharge Medication List Gabapentin [Neurontin] 100 mg PO BID 10/17/18 [History] Oxybutynin ER [Ditropan Xl] 15 mg PO BID 10/17/18 [History] Baclofen 10 mg PO BID 03/04/20 [History] Abf-Jziy-Fbszi Acid [-U Capsule (formulary)] 1 cap PO DAILY 03/04/20 [History] Follow up Appointment(s)/Referral(s): Ida Don DO [Doctor of Osteopathic Medicine] - 4 Weeks Discharge Disposition: HOME SELF-CARE
== END 2022-03-12 12:30 | disposition home or self-care (01) | DRG 806 ==
LOC: FBPOP 07:11 → 4FBP 07:23
PROVIDERS: ADMIT Obstetrics & Gynecology Obstetrics; ATTEND Obstetrics & Gynecology Obstetrics
PROC: 10E0XZZ Delivery of Products of Conception, External Approach (ICD-10-PCS; principal; 2022-03-11)
DX: O99.354 Diseases of the nervous system complicating childbirth (principal); G82.20 Paraplegia, unspecified; Z37.0 Single live birth; R03.0 Elevated blood-pressure reading, without diagnosis of hypertension; Z3A.38 38 weeks gestation of pregnancy; Z98.1 Arthrodesis status; Z86.718 Personal history of other venous thrombosis and embolism; Z83.3 Family history of diabetes mellitus; Z82.49 Family history of ischemic heart disease and other diseases of the circulatory system; Z79.891 Long term (current) use of opiate analgesic; Z79.899 Other long term (current) drug therapy; Z99.3 Dependence on wheelchair
CPT/HCPCS: 85025; 86850; 86900; 86901

== ENCOUNTER 2022-11-03 10:01 | Inpatient (IN) | payer BC ==
[2022-11-03] MEDS ORDERED: SODIUM CHLORIDE 0.9% 1,000 ML IV STA ×2 (10:29→11:59)
[2022-11-03] MEDS ORDERED: KETOROLAC 15 MG/ML 1 ML VIAL IVP STA (10:43)
[2022-11-03] MEDS ORDERED: LEVOFLOXACIN 750MG-D5W PMX 750 MG in DEXTROSE/WATER 1 150ML.BAG IVPB STA (10:44)
--- NOTE | 2022-11-03 10:44 | ED ---
Abdominal Pain HPI - General Chief Complaint: Abdominal Pain Stated Complaint: UTI Time Seen by Provider: 11/03/22 10:23 Source: patient Mode of arrival: ambulatory Limitations: no limitations - History of Present Illness Initial Comments: Patient is a 37-year-old female who presents to the emergency department with concern for worsening urinary tract infection. Patient states she went to the urgent care Tuesday for urinary tract infection symptoms and was placed on amoxicillin which she has been taking as directed. Patient states she is not feeling better. She feels very fatigued with fever, chills, nausea. Patient has a spinal cord injury at T2 therefore she does not feel pain below the injury. She is unable to provide information about abdominal pain, back pain, burning with urination, frequency. No vaginal discharge. She has gotten urinary tract infection before with sepsis. No vomiting. No concern for sexually transmitted infections. No chest pain, shortness of breath, cold-like symptoms, diarrhea, constipation. - Related Data Home Medications Medication Instructions Recorded Confirmed Gabapentin [Neurontin] 100 mg PO BID 10/17/18 11/03/22 Oxybutynin ER [Ditropan Xl] 15 mg PO BID 10/17/18 11/03/22 Baclofen 10 mg PO BID 03/04/20 11/03/22 Amoxicillin 875 mg PO BID 11/03/22 11/03/22 Allergies Allergy/AdvReac Type Severity Reaction Status Date / Time No Known Allergies Allergy Verified 11/03/22 12:36 Review of Systems ROS Statement: Those systems with pertinent positive or pertinent negative responses have been documented in the HPI. ROS Other: All systems not noted in ROS Statement are negative. Past Medical History Additional Past Medical History / Comment(s): spinal cord injury History of Any Multi-Drug Resistant Organisms: None Reported Date of last positivie culture/infection: 2003 MDRO Source:: hospital Additional Past Surgical History / Comment(s): spinal fusion, spleen embolism Past Anesthesia/Blood Transfusion Reactions: No Reported Reaction Past Psychological History: No Psychological Hx Reported Smoking Status: Never smoker Past Alcohol Use History: None Reported Past Drug Use History: None Reported - Past Family History Mother Family Medical History: Diabetes Mellitus, Hypertension General Exam Limitations: no limitations General appearance: alert, in no apparent distress Head exam: Present: atraumatic, normocephalic, normal inspection Eye exam: Present: normal appearance, PERRL, EOMI. Absent: scleral icterus, conjunctival injection, periorbital swelling Respiratory exam: Present: normal lung sounds bilaterally. Absent: respiratory distress, wheezes, rales, rhonchi, stridor Cardiovascular Exam: Present: normal rhythm, tachycardia, normal heart sounds. Absent: regular rate, systolic murmur, diastolic murmur, rubs, gallop, clicks GI/Abdominal exam: Present: soft, normal bowel sounds. Absent: distended, tenderness, guarding, rebound, rigid Neurological exam: Present: alert, oriented X3, CN II-XII intact Psychiatric exam: Present: normal affect, normal mood Skin exam: Present: warm, dry, intact, normal color. Absent: rash Course Vital Signs 11/03/22 11/03/22 11/03/22 10:17 10:48 11:44 Temperature 100.5 F H 100.6 F H 98.7 F Pulse Rate 110 H 85 75 Respiratory 20 16 16 Rate Blood Pressure 97/48 100/52 93/54 O2 Sat by Pulse 97 96 99 Oximetry 11/03/22 12:17 Temperature Pulse Rate 88 Respiratory 20 Rate Blood Pressure 91/55 O2 Sat by Pulse 99 Oximetry Medical Decision Making - Medical Decision Making Was pt. sent in by a medical professional or institution (, PA, PRODUCTION SUPPLY EQUIPMENT TENDER, urgent care, hospital, or intermediate...) When possible be specific @ -No Did you speak to anyone other than the patient for history (EMS, parent, family, police, friend...)? What history was obtained from this source @ -No Did you review nursing and triage notes (agree or disagree)? Why? @ -I reviewed and agree with nursing and triage notes Were old charts reviewed (outside hosp., previous admission, EMS record, old EKG, old radiological studies, urgent care reports/EKG's, intermediate records)? Report findings @ -No old charts were reviewed Differential Diagnosis (chest pain, altered mental status, abdominal pain women, abdominal pain men, vaginal bleeding, weakness, fever, dyspnea, syncope, headache, dizziness, GI bleed, back pain, seizure, CVA, palpatations, mental health)? @ -Differential Abdominal Pain Women: Appendicitis, Cholecystitis, diverticulosis, ischemic bowel, pancreatitis, hepatitis, UTI, gastroenteritis, AAA, incarcerated hernia, bowel obstruction, constipation, inflammatory bowel, hepatitis, peptic ulcer disease, splenic infarction, perforated viscus, vulvitis, ovarian torsion, PID, kidney stone, placenta abruption, this is not meant to be an all-inclusive list EKG interpreted by me (3pts min.). @ -As above X-rays interpreted by me (1pt min.). @ -None done CT interpreted by me (1pt min.). @ -None done U/S interpreted by me (1pt. min.). @ -None done What testing was considered but not performed or refused? (CT, X-rays, U/S, labs)? Why? @ -None What meds were considered but not given or refused? Why? @ -None Did you discuss the management of the patient with other professionals (professionals i.e. , PA, PRODUCTION SUPPLY EQUIPMENT TENDER, lab, RT, psych nurse, social services technician, consulting sales manager, teacher, safety and security officer, case monitor)? Give summary @ -No Was smoking cessation discussed for >3mins.? @ -No Was critical care preformed (if so, how long)? @ -No Were there social determinants of health that impacted care today? How? (Homelessness, low income, unemployed, alcoholism, drug addiction, transportation, low edu. Level, literacy, decrease access to med. care, halfway, r ehab)? @ -No Was there de-escalation of care discussed even if they declined (Discuss DNR or withdrawal of care, Hospice)? DNR status @ -No What co-morbidities impacted this encounter? (DM, HTN, Smoking, COPD, CAD, Cancer, CVA, ARF, Chemo, Hep., AIDS, mental health diagnosis, sleep apnea, morbid obesity)? @ -Spinal cord injury Was patient admitted / discharged? Hospital course, mention meds given and route, prescriptions, significant lab abnormalities, going to OR and other pertinent info. @ -This is a 37-year-old female presenting with concern for worsening UTI. Patient is febrile and mildly tachycardic. Blood pressure is on the softer side at 97/48. Blood cultures and IV fluids initiated. Laboratory studies obtained. There is significant leukocytosis at 27.8 with left shift. There is mild acute kidney injury, creatinine at 1.08, BUN at 24.. There is hypokalemia at 2.9. Urinalysis reveals infection. Sepsis diagnosis made at 12:45 secondary to UTI. Patient given Levaquin and potassium supplementation. Tachycardia resolved and blood pressure remained stable during visit. Patient will be admitted to Dr. Griggs for UTI with sepsis. She is admitted in stable condition. Undiagnosed new problem with uncertain prognosis? @ -No Drug Therapy requiring intensive monitoring for toxicity (Heparin, Nitro, Insulin, Cardizem)? @ -No Were any procedures done? @ -No Diagnosis/symptom? @ -UTI, sepsis Acute, or Chronic, or Acute on Chronic? @ -acute Uncomplicated (without systemic symptoms) or Complicated (systemic symptoms)? @ -complicated Side effects of treatment? @ -No Exacerbation, Progression, or Severe Exacerbation? @ -No Poses a threat to life or bodily function? How? (Chest pain, USA, PA, pneumonia, PE, COPD, DKA, ARF, appy, cholecystitis, CVA, Diverticulitis, Homicidal, Suicidal, threat to staff... and all critical care pts) @ -yes Dr. Rowe is my attending - Lab Data Result diagrams: 11/03/22 10:44 11/03/22 10:44 Lab Results 11/03/22 11/03/22 11/03/22 Range/Units 10:44 10:44 10:44 WBC 27.8 H (3.8-10.6) k/uL RBC 4.32 (3.80-5.40) m/uL Hgb 12.4 (11.4-16.0) gm/dL Hct 37.3 (34.0-46.0) % MCV 86.4 (80.0-100.0) fL MCH 28.7 (25.0-35.0) pg MCHC 33.2 (31.0-37.0) g/dL RDW 14.3 (11.5-15.5) % Plt Count 263 (150-450) k/uL MPV 9.5 Neutrophils % 89 % Lymphocytes % 3 % Monocytes % 6 % Eosinophils % 0 % Basophils % 0 % Neutrophils # 24.6 H (1.3-7.7) k/uL Lymphocytes # 0.9 L (1.0-4.8) k/uL Monocytes # 1.8 H (0-1.0) k/uL Eosinophils # 0.1 (0-0.7) k/uL Basophils # 0.0 (0-0.2) k/uL Sodium 139 (137-145) mmol/L Potassium 2.9 L (3.5-5.1) mmol/L Chloride 106 (98-107) mmol/L Carbon Dioxide 19 L (22-30) mmol/L Anion Gap 14 mmol/L BUN 24 H (7-17) mg/dL Creatinine 1.08 H (0.52-1.04) mg/dL Est GFR (CKD-EPI)AfAm 76 (>60 ml/min/1.73 sqM) Est GFR (CKD-EPI)NonAf 66 (>60 ml/min/1.73 sqM) Glucose 94 (74-99) mg/dL Plasma Lactic Acid Doyle 1.0 (0.7-2.0) mmol/L Calcium 8.7 (8.4-10.2) mg/dL Total Bilirubin 0.6 (0.2-1.3) mg/dL AST 23 (14-36) U/L ALT 22 (4-34) U/L Alkaline Phosphatase 98 (38-126) U/L Total Protein 7.3 (6.3-8.2) g/dL Albumin 4.0 (3.5-5.0) g/dL Lipase 26 (23-300) U/L Urine Color Urine Appearance (Clear) Urine pH (5.0-8.0) Ur Specific Cecil (1.001-1.035) Urine Protein (Negative) Urine Glucose (UA) (Negative) Urine Ketones (Negative) Urine Blood (Negative) Urine Nitrite (Negative) Urine Bilirubin (Negative) Urine Urobilinogen (<2.0) mg/dL Ur Leukocyte Esterase (Negative) Urine RBC (0-5) /hpf Urine WBC (0-5) /hpf Urine WBC Clumps (None) /hpf Ur Squamous Epith Cells (0-4) /hpf Urine Bacteria (None) /hpf Urine Mucus (None) /hpf Urine HCG, Qual (Not Detectd) 11/03/22 11/03/22 Range/Units 12:09 12:09 WBC (3.8-10.6) k/uL RBC (3.80-5.40) m/uL Hgb (11.4-16.0) gm/dL Hct (34.0-46.0) % MCV (80.0-100.0) fL MCH (25.0-35.0) pg MCHC (31.0-37.0) g/dL RDW (11.5-15.5) % Plt Count (150-450) k/uL MPV Neutrophils % % Lymphocytes % % Monocytes % % Eosinophils % % Basophils % % Neutrophils # (1.3-7.7) k/uL Lymphocytes # (1.0-4.8) k/uL Monocytes # (0-1.0) k/uL Eosinophils # (0-0.7) k/uL Basophils # (0-0.2) k/uL Sodium (137-145) mmol/L Potassium (3.5-5.1) mmol/L Chloride (98-107) mmol/L Carbon Dioxide (22-30) mmol/L Anion Gap mmol/L BUN (7-17) mg/dL Creatinine (0.52-1.04) mg/dL Est GFR (CKD-EPI)AfAm (>60 ml/min/1.73 sqM) Est GFR (CKD-EPI)NonAf (>60 ml/min/1.73 sqM) Glucose (74-99) mg/dL Plasma Lactic Acid Doyle (0.7-2.0) mmol/L Calcium (8.4-10.2) mg/dL Total Bilirubin (0.2-1.3) mg/dL AST (14-36) U/L ALT (4-34) U/L Alkaline Phosphatase (38-126) U/L Total Protein (6.3-8.2) g/dL Albumin (3.5-5.0) g/dL Lipase (23-300) U/L Urine Color Yellow Urine Appearance Cloudy H (Clear) Urine pH 5.5 (5.0-8.0) Ur Specific Cecil 1.019 (1.001-1.035) Urine Protein 2+ H (Negative) Urine Glucose (UA) Negative (Negative) Urine Ketones Trace H (Negative) Urine Blood Trace H (Negative) Urine Nitrite Negative (Negative) Urine Bilirubin Negative (Negative) Urine Urobilinogen <2.0 (<2.0) mg/dL Ur Leukocyte Esterase Large H (Negative) Urine RBC 2 (0-5) /hpf Urine WBC 77 H (0-5) /hpf Urine WBC Clumps Few H (None) /hpf Ur Squamous Epith Cells 10 H (0-4) /hpf Urine Bacteria Rare H (None) /hpf Urine Mucus Rare H (None) /hpf Urine HCG, Qual Not Detected (Not Detectd) Critical Care Time Critical Care Time: Yes (detailed history and physical exam, labs, meds, admission ) Total Critical Care Time: 31 Disposition Clinical Impression: UTI (urinary tract infection), Sepsis Disposition: ADMITTED IP TO THIS HOSP Condition: Stable Referrals: Jose Alejandro Haq MD [Primary Care Provider] - 1-2 days
[2022-11-03 11:26] LABS: Calcium 8.7 mg/dL (8.4-10.2); Potassium 2.9 mmol/L (3.5-5.1); Total Bilirubin 0.6 mg/dL (0.2-1.3); Total Protein 7.3 g/dL (6.3-8.2)
[2022-11-03] MEDS ORDERED: POTASSIUM CHLORIDE ER 20 MEQ TAB.ER PO STA (11:59)
[2022-11-03 12:36] LABS: Basophils % (A) 0 %; Eosinophils # (A) 0.1 k/uL (0-0.7); Eosinophils % (A) 0 %; HCT 37.3 % (34.0-46.0); HGB 12.4 gm/dL (11.4-16.0); Lymphocytes # (A) 0.9 k/uL (1.0-4.8); Lymphocytes % (A) 3 %; MCH 28.7 pg (25.0-35.0); MCHC 33.2 g/dL (31.0-37.0); MCV 86.4 fL (80.0-100.0); Mean Platelet Volume 9.5; Monocytes # (A) 1.8 k/uL (0-1.0); Monocytes % (A) 6 %; Neutrophils # (A) 24.6 k/uL (1.3-7.7); Neutrophils % (A) 89 %; Platelet Count 263 k/uL (150-450); RBC 4.32 m/uL (3.80-5.40); RDW 14.3 % (11.5-15.5); WBC 27.8 k/uL (3.8-10.6)
[2022-11-03 12:42] LABS: Appearance,Urine Cloudy (Clear); Bacteria,Urine Rare /hpf; Bilirubin,Urine Negative (Negative); Blood,Urine Trace (Negative); Color,Urine Yellow; Glucose,Urine (UA) Negative (Negative); Ketones,Urine Trace (Negative); Leukocyte Esterase,Urine Large (Negative); Mucus,Urine Rare /hpf; Nitrite,Urine Negative (Negative); PH, Urine 5.5 (5.0-8.0); Protein,Urine 2+ (Negative); RBC,Urine 2 /hpf (0-5); Specific Gravity,Urine 1.019 (1.001-1.035); Squamous Epithelial Cell,Urine 10 /hpf (0-4); Urobilinogen,Urine <2.0 mg/dL (<2.0); WBC,Urine 77 /hpf (0-5)
[2022-11-03] MEDS ORDERED: NALOXONE 0.4 MG/ML 1 ML VIAL IV PRN (13:04)
--- NOTE | 2022-11-03 13:30 | P.HPIM ---
History of Present Illness This is a pleasant 37 years old female with past medical history of a spinal cord injury in 2003, she is wheelchair-bound She's been having symptoms like nausea, generalized body aches, chills. Also she thinks she has UTI because she got them frequently as she do straight Frequently. Her urine looks cloudy but she denies dysuria or urgency. She wants to urgent care were given her amoxicillin but she got worse over the last 2 days. Patient has low-grade fever and blood pressure borderline. She has leukocytosis 27.8, rest of CBC is unremarkable Flow potassium 2.9, creatinine 1.0, so BMP and liver enzymes are unremarkable Analysis is suspicious for infection. And emergency room she was started on Levaquin Review of Systems Review of systems CONSTITUTIONAL: No fever, no malaise, no fatigue. HEENT: No recent visual problems or hearing problems. Denied any sore throat. CARDIOVASCULAR: No orthopnea, PND, no palpitations, no syncope. PULMONARY: No shortness of breath, no cough, no hemoptysis. GASTROINTESTINAL: No diarrhea, no nausea, no vomiting, no abdominal pain. Normoactive bowel sounds. NEUROLOGICAL: No headaches, no weakness, no numbness. HEMATOLOGICAL: Denies any bleeding or petechiae. GENITOURINARY: Denies any burning micturition, frequency, or urgency. MUSCULOSKELETAL/RHEUMATOLOGICAL: Denies any joint pain, swelling, or any muscle pain. ENDOCRINE: Denies any polyuria or polydipsia. Past Medical History Additional Past Medical History / Comment(s): spinal cord injury History of Any Multi-Drug Resistant Organisms: None Reported Date of last positivie culture/infection: 2003 MDRO Source:: hospital Additional Past Surgical History / Comment(s): spinal fusion, spleen embolism Past Anesthesia/Blood Transfusion Reactions: No Reported Reaction Past Psychological History: No Psychological Hx Reported Smoking Status: Never smoker Past Alcohol Use History: None Reported Past Drug Use History: None Reported - Past Family History Mother Family Medical History: Diabetes Mellitus, Hypertension Medications and Allergies Home Medications Medication Instructions Recorded Confirmed Type Gabapentin [Neurontin] 100 mg PO BID 10/17/18 11/03/22 History Oxybutynin ER [Ditropan Xl] 15 mg PO BID 10/17/18 11/03/22 History Baclofen 10 mg PO BID 03/04/20 11/03/22 History Amoxicillin 875 mg PO BID 11/03/22 11/03/22 History Allergies Allergy/AdvReac Type Severity Reaction Status Date / Time No Known Allergies Allergy Verified 11/03/22 12:36 Physical Exam Vitals: Vital Signs Temp Pulse Resp BP Pulse Ox 11/03/22 12:17 88 20 91/55 99 11/03/22 11:44 98.7 F 75 16 93/54 99 11/03/22 10:48 100.6 F H 85 16 100/52 96 11/03/22 10:17 100.5 F H 110 H 20 97/48 97 Intake and Output 11/02/22 11/03/22 11/03/22 22:59 06:59 14:59 Other: Voiding Method Self-Catheterization Weight 68.039 kg GENERAL: The patient is alert and oriented x3, not in any acute distress. Well developed, well nourished. HEENT: Pupils are round and equally reacting to light. EOMI. No scleral icterus. No conjunctival pallor. Normocephalic, atraumatic. No pharyngeal erythema. No thyromegaly. CARDIOVASCULAR: S1 and S2 present. No murmurs, rubs, or gallops. PULMONARY: Chest is clear to auscultation, no wheezing or crackles. ABDOMEN: Soft, nontender, nondistended, normoactive bowel sounds. No palpable organomegaly. MUSCULOSKELETAL: No joint swelling or deformity. EXTREMITIES: No cyanosis, clubbing, or pedal edema. -NEUROLOGICAL: Gross neurological examination did not reveal any focal deficits. Patient bedbound and has paralysis in the lower half of her body SKIN: No rashes. no petechiae. Results CBC & Chem 7: 11/03/22 10:44 11/03/22 10:44 Labs: Abnormal Lab Results - Last 24 Hours (Table) 11/03/22 11/03/22 11/03/22 Range/Units 10:44 10:44 12:09 WBC 27.8 H (3.8-10.6) k/uL Neutrophils # 24.6 H (1.3-7.7) k/uL Lymphocytes # 0.9 L (1.0-4.8) k/uL Monocytes # 1.8 H (0-1.0) k/uL Potassium 2.9 L (3.5-5.1) mmol/L Carbon Dioxide 19 L (22-30) mmol/L BUN 24 H (7-17) mg/dL Creatinine 1.08 H (0.52-1.04) mg/dL Urine Appearance Cloudy H (Clear) Urine Protein 2+ H (Negative) Urine Ketones Trace H (Negative) Urine Blood Trace H (Negative) Ur Leukocyte Esterase Large H (Negative) Urine WBC 77 H (0-5) /hpf Urine WBC Clumps Few H (None) /hpf Ur Squamous Epith Cells 10 H (0-4) /hpf Urine Bacteria Rare H (None) /hpf Urine Mucus Rare H (None) /hpf Assessment and Plan Assessment: Acute urinary tract infection Sepsis secondary to above History of spinal cord injury with bed-bound Plan: Continue with Levaquin Follow-up urine culture Infectious disease consult Continue with normal saline currently 1:30 milliliters per hour Labs and medication were reviewed.. Continue same treatment. Continue with symptomatic treatment. Resume home medication. Monitor labs and vitals. DVT and GI prophylaxis. Further recommendations as per clinical course of the patient DVT prophylaxis: Subcutaneous heparin GI Prophylaxis: Pepcid Prognosis is guarded
--- NOTE | 2022-11-03 14:20 | US ---
EXAMINATION TYPE: US kidneys/renal and bladder DATE OF EXAM: 11/03/2022 COMPARISON: US 03/05/2020 CLINICAL INDICATION: Female, 37 years old with history of possible pyelo; UTI EXAM MEASUREMENTS: Right Kidney: 12.6 x 5.0 x 6.4 cm Right Kidney: No evidence of hydro, possible echogenic area mid/lateral= 1.0 x 0.7 x 0.8 cm Left Kidney: Atrophic Bladder: Possible thickened wall Bilateral Jets seen: No IMPRESSION: 1. No evidence of right-sided hydronephrosis there is a 1 cm echogenic area could represent tiny jenny omyolipoma or less likely nonshadowing stone. 2. Atrophic left kidney correlate with chronic medical renal disease. 3. Thickened bladder wall correlate with urinalysis for cystitis.
[2022-11-03] MEDS ORDERED: ONDANSETRON 4 MG/2 ML VIAL IVP STA (16:27)
[2022-11-03] MEDS ORDERED: ACETAMINOPHEN TAB 325 MG TAB PO STA (17:20)
[2022-11-03] MEDS ORDERED: METOCLOPRAMIDE 5 MG TAB PO STA (20:26)
[2022-11-03] MEDS ORDERED: METOCLOPRAMIDE 5 MG TAB PO PRN (20:26)
[2022-11-03] MEDS: BACLOFEN 10 MG TAB PO SCH (21:19)
[2022-11-03] MEDS: FAMOTIDINE 20 MG/2 ML VIAL IV SCH (21:19)
[2022-11-03] MEDS: GABAPENTIN 100 MG CAP PO SCH (21:19)
[2022-11-03] MEDS: HEPARIN SODIUM,PORCINE/PF 5,000 UNIT/0.5 ML SYRINGE SQ SCH (21:20)
--- NOTE | 2022-11-03 21:34 | P.CONS ---
History of Present Illness - Reason for Consult Consult date: 11/03/22 UTI Requesting physician: Rey E Sheet - Chief Complaint Not feeling well x few days - History of Present Illness Patient is a 37-year-old female with a past medical history significant for T2 spinal cord injury patient did have a urinary retention requiring self-catheterization every few hours patient did mention that recently her urine has been getting more cloudy and on Tuesday there is 3 days before presentation to the hospital the patient mention she was not feeling well felt fatigue and did have some chills and nausea and the patient did went to urgent care and was diagnosed with a UTI and started on amoxicillin however the patient did not have improvement on the worsening of her symptoms symptom has been mostly weakness not feeling well low-grade fever and chills feeling nauseated but no vomiting patient denies having any headache or URI symptoms no chest pain shortness of breath or cough patient did not have any sensation of his pillow and denies having any burning of urine or any abdominal pain no diarrhea did mention cloudy urine patient did have a fever 100.5 on presentation to the hospital she was tachycardic and did have white count 27.8 with a left shift bleeding that has been mildly elevated urine was positive culture has been o btained patient was started on Levaquin infectious disease was consulted for further management of antibiotic therapy Review of Systems Positive point and negatives has been mentioned in the HPI, complete review of systems was performed and all other systems are negative Past Medical History Additional Past Medical History / Comment(s): spinal cord injury History of Any Multi-Drug Resistant Organisms: None Reported Year Discovered:: 2003 MDRO Source:: hospital Additional Past Surgical History / Comment(s): spinal fusion, spleen embolism Past Anesthesia/Blood Transfusion Reactions: No Reported Reaction Past Psychological History: No Psychological Hx Reported Smoking Status: Never smoker Past Alcohol Use History: None Reported Past Drug Use History: None Reported - Past Family History Mother Family Medical History: Diabetes Mellitus, Hypertension Medications and Allergies Home Medications Medication Instructions Recorded Confirmed Type Gabapentin [Neurontin] 100 mg PO BID 10/17/18 11/03/22 History Oxybutynin ER [Ditropan Xl] 15 mg PO BID 10/17/18 11/03/22 History Baclofen 10 mg PO BID 03/04/20 11/03/22 History cefUROXime axetiL [Ceftin] 500 mg PO BID 12 Days #24 tab 11/08/22 Rx Allergies Allergy/AdvReac Type Severity Reaction Status Date / Time No Known Allergies Allergy Verified 11/03/22 12:36 Physical Exam Vitals: Vital Signs Temp Pulse Resp BP Pulse Ox 11/03/22 12:17 88 20 91/55 99 11/03/22 11:44 98.7 F 75 16 93/54 99 11/03/22 10:48 100.6 F H 85 16 100/52 96 11/03/22 10:17 100.5 F H 110 H 20 97/48 97 Intake and Output 11/02/22 11/03/22 11/03/22 22:59 06:59 14:59 Other: Voiding Method Self-Catheterization Weight 68.039 kg GENERAL DESCRIPTION: Middle-aged female lying in bed, no distress. No tachypnea or accessory muscle of respiration use. HEENT: Shows Pallor , no scleral icterus. Oral mucous membrane is dry. NECK: Trachea central, no thyromegaly. LUNGS: Unlabored breathing. Clear to auscultation anteriorly. No wheeze or crackle. HEART: S1, S2, regular rate and rhythm. No loud murmur ABDOMEN: Soft, no tenderness , guarding or rigidity, no organomegaly EXTREMITIES: No edema of feet. SKIN: No rash, no masses palpable. NEUROLOGICAL: The patient is awake, alert, oriented x3, mood and affect normal. Results CBC & Chem 7: 11/06/22 06:38 11/06/22 06:38 Labs: Abnormal Lab Results - Last 24 Hours (Table) 11/03/22 11/03/22 11/03/22 Range/Units 10:44 10:44 12:09 WBC 27.8 H (3.8-10.6) k/uL Neutrophils # 24.6 H (1.3-7.7) k/uL Lymphocytes # 0.9 L (1.0-4.8) k/uL Monocytes # 1.8 H (0-1.0) k/uL Potassium 2.9 L (3.5-5.1) mmol/L Carbon Dioxide 19 L (22-30) mmol/L BUN 24 H (7-17) mg/dL Creatinine 1.08 H (0.52-1.04) mg/dL Urine Appearance Cloudy H (Clear) Urine Protein 2+ H (Negative) Urine Ketones Trace H (Negative) Urine Blood Trace H (Negative) Ur Leukocyte Esterase Large H (Negative) Urine WBC 77 H (0-5) /hpf Urine WBC Clumps Few H (None) /hpf Ur Squamous Epith Cells 10 H (0-4) /hpf Urine Bacteria Rare H (None) /hpf Urine Mucus Rare H (None) /hpf Assessment and Plan (1) Sepsis Current Visit: Yes Status: Acute Code(s): A41.9 - SEPSIS, UNSPECIFIED ORGANISM SNOMED Code(s): 74037066 (2) UTI (urinary tract infection) Current Visit: Yes Status: Acute Code(s): N39.0 - URINARY TRACT INFECTION, SITE NOT SPECIFIED SNOMED Code(s): 60052409 Plan: 1patient presented hospital with sepsis in this patient who did have fever elevated white count tachycardia patient did have a history of urinary retention requiring self-catheterization and cloudy urine concerning for complicated UTI likely from enteric gram-negative pathogen failing outpatient oral amoxicillin therapy 2-discontinue Levaquin as high risk of Levaquin resistant pathogen 3-await ultrasound of the kidney and the bladder area 4-start Rocephin 2 g daily Mother at the bedside question concern answered We will follow on clinical condition and cultures to further adjust medication if needed Thank you for this consultation we will follow the patient along with you Time with Patient: Greater than 30
[2022-11-03] MEDS ORDERED: Magnesium Replacement Protocol 1 EACH MISC MISCELLANE PRN (22:22)
[2022-11-03] MEDS ORDERED: Potassium Replacement Protocol 1 EACH MISC MISCELLANE PRN (22:22)
[2022-11-03] MEDS: OXYBUTYNIN 15 MG TAB.ER.24 PO SCH (22:42)
[2022-11-03 22:59] LABS: Magnesium 1.8 mg/dL (1.6-2.3); Potassium 3.9 mmol/L (3.5-5.1)
[2022-11-03] MEDS: ACETAMINOPHEN TAB 325 MG TAB PO PRN (23:15)
[2022-11-04] MEDS: SODIUM CHLORIDE 0.9% 1,000 ML IV SCH (02:16)
[2022-11-04] MEDS: diphenhydrAMINE 50 MG/ML 1 ML VIAL IVP PRN (03:31)
[2022-11-04] MEDS: ACETAMINOPHEN TAB 325 MG TAB PO PRN ×3 (03:35→20:03)
[2022-11-04] MEDS: KETOROLAC 15 MG/ML 1 ML VIAL IVP PRN (08:30)
[2022-11-04] MEDS: GABAPENTIN 100 MG CAP PO SCH ×2 (08:31→19:59)
[2022-11-04] MEDS: HEPARIN SODIUM,PORCINE/PF 5,000 UNIT/0.5 ML SYRINGE SQ SCH ×2 (08:31→19:59)
[2022-11-04] MEDS: FAMOTIDINE 20 MG/2 ML VIAL IV SCH (08:31)
[2022-11-04] MEDS: OXYBUTYNIN 15 MG TAB.ER.24 PO SCH ×2 (08:31→19:59)
[2022-11-04] MEDS: BACLOFEN 10 MG TAB PO SCH ×2 (08:31→19:59)
[2022-11-04 08:52] LABS: African American GFR (CKD) 80 (>60 ml/min/1.73 sqM); Anion Gap 12 mmol/L; Blood Urea Nitrogen 22 mg/dL (7-17); Calcium 8.1 mg/dL (8.4-10.2); Carbon Dioxide 16 mmol/L (22-30); Chloride 113 mmol/L (98-107); Glucose 65 mg/dL (74-99); Magnesium 1.9 mg/dL (1.6-2.3); Non-African American GFR(CKD) 70 (>60 ml/min/1.73 sqM); Potassium 3.9 mmol/L (3.5-5.1); Sodium 141 mmol/L (137-145)
[2022-11-04] MEDS ORDERED: LEVOFLOXACIN 500MG-D5W PMX 500 MG in DEXTROSE/WATER 1 100ML.BAG IVPB SCH (09:00)
--- NOTE | 2022-11-04 09:53 | P.PN ---
Subjective This is a pleasant 37 years old female with past medical history of a spinal cord injury in 2003, she is wheelchair-bound She's been having symptoms like nausea, generalized body aches, chills. Also she thinks she has UTI because she got them frequently as she do straight Frequently. Her urine looks cloudy but she denies dysuria or urgency. She wants to urgent care were given her amoxicillin but she got worse over the last 2 days. Patient has low-grade fever and blood pressure borderline. She has leukocytosis 27.8, rest of CBC is unremarkable Flow potassium 2.9, creatinine 1.0, so BMP and liver enzymes are unremarkable Analysis is suspicious for infection. And emergency room she was started on Levaquin 11/04/2022 Patient underwent general alert. Lethargic. She has poor appetite. No pain. She had low-grade temperature this morning 100. Blood pressure low-normal. Renal ultrasound showing no hydronephrosis but cystitis She is kept on ceftriaxone 2 g and normal saline 75 mL/h Urine culture is pending Objective - Vital Signs Vital signs: Vital Signs Temp 100 F H 11/04/22 07:17 Pulse 60 11/04/22 07:17 Resp 18 11/04/22 07:17 BP 116/63 11/04/22 07:17 Pulse Ox 97 11/04/22 07:17 FiO2 Intake & Output 11/03/22 11/04/22 11/04/22 18:59 06:59 18:59 Intake Total 130 480 Balance 130 480 Weight 68.039 kg Intake: Intake, IV Titration 130 Amount Sodium Chloride 0.9% 1, 130 000 ml @ 130 mls/hr IV . Q7H42M STA Rx#:[id number] Oral 480 Other: Voiding Method Self-Catheterization Self-Catheterization # Voids 3 - Exam GENERAL: The patient is alert and oriented x3, not in any acute distress. Well developed, well nourished. HEENT: Pupils are round and equally reacting to light. EOMI. No scleral icterus. No conjunctival pallor. Normocephalic, atraumatic. No pharyngeal erythema. No thyromegaly. CARDIOVASCULAR: S1 and S2 present. No murmurs, rubs, or gallops. PULMONARY: Chest is clear to auscultation, no wheezing or crackles. ABDOMEN: Soft, nontender, nondistended, normoactive bowel sounds. No palpable organomegaly. MUSCULOSKELETAL: No joint swelling or deformity. EXTREMITIES: No cyanosis, clubbing, or pedal edema. -NEUROLOGICAL: Gross neurological examination did not reveal any focal deficits. Patient bedbound and has paralysis in the lower half of her body SKIN: No rashes. no petechiae. - Labs CBC & Chem 7: 11/03/22 10:44 11/04/22 07:05 Labs: Abnormal Lab Results - Last 24 Hours (Table) 11/03/22 11/03/22 11/03/22 Range/Units 10:44 10:44 12:09 WBC 27.8 H (3.8-10.6) k/uL Neutrophils # 24.6 H (1.3-7.7) k/uL Lymphocytes # 0.9 L (1.0-4.8) k/uL Monocytes # 1.8 H (0-1.0) k/uL Potassium 2.9 L (3.5-5.1) mmol/L Chloride (98-107) mmol/L Carbon Dioxide 19 L (22-30) mmol/L BUN 24 H (7-17) mg/dL Creatinine 1.08 H (0.52-1.04) mg/dL Glucose (74-99) mg/dL Calcium (8.4-10.2) mg/dL Urine Appearance Cloudy H (Clear) Urine Protein 2+ H (Negative) Urine Ketones Trace H (Negative) Urine Blood Trace H (Negative) Ur Leukocyte Esterase Large H (Negative) Urine WBC 77 H (0-5) /hpf Urine WBC Clumps Few H (None) /hpf Ur Squamous Epith Cells 10 H (0-4) /hpf Urine Bacteria Rare H (None) /hpf Urine Mucus Rare H (None) /hpf 11/04/22 Range/Units 07:05 WBC (3.8-10.6) k/uL Neutrophils # (1.3-7.7) k/uL Lymphocytes # (1.0-4.8) k/uL Monocytes # (0-1.0) k/uL Potassium (3.5-5.1) mmol/L Chloride 113 H (98-107) mmol/L Carbon Dioxide 16 L (22-30) mmol/L BUN 22 H (7-17) mg/dL Creatinine (0.52-1.04) mg/dL Glucose 65 L (74-99) mg/dL Calcium 8.1 L (8.4-10.2) mg/dL Urine Appearance (Clear) Urine Protein (Negative) Urine Ketones (Negative) Urine Blood (Negative) Ur Leukocyte Esterase (Negative) Urine WBC (0-5) /hpf Urine WBC Clumps (None) /hpf Ur Squamous Epith Cells (0-4) /hpf Urine Bacteria (None) /hpf Urine Mucus (None) /hpf Microbiology - Last 24 Hours (Table) 11/03/22 12:09 Urine Culture - Preliminary Urine,Voided Assessment and Plan Assessment: Acute urinary tract infection Sepsis secondary to above History of spinal cord injury with bed-bound Plan: Continue with ceftriaxone Follow-up urine culture Infectious disease consult Continue with normal saline currently 75 milliliters per hour Labs and medication were reviewed.. Continue same treatment. Continue with symptomatic treatment. Resume home medication. Monitor labs and vitals. DVT and GI prophylaxis. Further recommendations as per clinical course of the patient DVT prophylaxis: Subcutaneous heparin GI Prophylaxis: Pepcid Prognosis is guarded
[2022-11-04 10:57] LABS: HGB 10.2 g/dL (12.0-15.0); MCH 28.7 pg (27.0-32.0); MCHC 31.9 g/dL (32.0-37.0); MCV 90.1 fL (80.0-97.0); Mean Platelet Volume 10.8 fL (9.5-12.2); NRBC Per 100 WBC 0 /100 WBCS (0.0-0.0); Platelet Count 276 X 10*3/uL (140-440); RBC 3.55 X 10*6/uL (4.10-5.20); RDW 14.8 % (11.5-14.5); WBC 21.98 X 10*3/uL (4.50-10.00)
[2022-11-04 11:43] LABS: HCG,Qualitative Serum Not Detected
[2022-11-04 13:57] LABS: Basophils # (M) 0.22 X 10*3/uL (0.00-0.10); Eosinophils # (M) 0 X 10*3/uL (0.04-0.35); Lymphocytes # (M) 2.42 X 10*3/uL (0.90-5.00); Monocytes # (M) 0.88 X 10*3/uL (0.20-1.00); Neutrophils # (M) 18.46 X 10*3/uL (2.00-8.90); Neutrophils % (M) 84 %; RBC Morphology NORMAL
[2022-11-04] MEDS: FAMOTIDINE 20 MG TAB PO SCH (19:59)
[2022-11-05] MEDS: diphenhydrAMINE 50 MG/ML 1 ML VIAL IVP PRN (00:19)
[2022-11-05] MEDS: SODIUM CHLORIDE 0.9% 1,000 ML IV SCH ×3 (03:12→13:49)
[2022-11-05] MEDS: GABAPENTIN 100 MG CAP PO SCH ×2 (08:27→20:43)
[2022-11-05] MEDS: BACLOFEN 10 MG TAB PO SCH ×2 (08:27→20:43)
[2022-11-05] MEDS: FAMOTIDINE 20 MG TAB PO SCH ×2 (08:27→20:43)
[2022-11-05] MEDS: HEPARIN SODIUM,PORCINE/PF 5,000 UNIT/0.5 ML SYRINGE SQ SCH ×2 (08:28→20:44)
[2022-11-05] MEDS: OXYBUTYNIN 15 MG TAB.ER.24 PO SCH ×2 (08:29→20:43)
[2022-11-05] MEDS: ACETAMINOPHEN TAB 325 MG TAB PO PRN ×2 (08:30→16:13)
[2022-11-05] MEDS ORDERED: LIDOCAINE-PRILOCAINE 2.5-2.5% CREAM 5 GM TUBE TOPICAL STA (08:40)
[2022-11-05] MEDS ORDERED: IOPAMIDOL CONTRAST (ORAL USE) VIAL PO PRN ×2 (12:27→12:39)
--- NOTE | 2022-11-05 12:33 | P.PN ---
Subjective This is a pleasant 37 years old female with past medical history of a spinal cord injury in 2003, she is wheelchair-bound She's been having symptoms like nausea, generalized body aches, chills. Also she thinks she has UTI because she got them frequently as she do straight Frequently. Her urine looks cloudy but she denies dysuria or urgency. She wants to urgent care were given her amoxicillin but she got worse over the last 2 days. Patient has low-grade fever and blood pressure borderline. She has leukocytosis 27.8, rest of CBC is unremarkable Flow potassium 2.9, creatinine 1.0, so BMP and liver enzymes are unremarkable Analysis is suspicious for infection. And emergency room she was started on Levaquin 11/04/2022 Patient underwent general alert. Lethargic. She has poor appetite. No pain. She had low-grade temperature this morning 100. Blood pressure low-normal. Renal ultrasound showing no hydronephrosis but cystitis She is kept on ceftriaxone 2 g and normal saline 75 mL/h Urine culture is pending 11/05/2022 Patient still generally weak for malaise, no chest pain or coughing or dyspnea, she has some abdominal bloating. No much urinary symptoms. She still have fever 102 today and leukocytosis 21,000. Urine cultures came back negative. Abdomen Nontender but bloated. We will repeat Urine analysis, we will order chest x-ray. Also we'll order CT of the abdomen and pelvis with oral contrast Patient has lost her IV access, midline ordered. Discussed with staff Objective - Vital Signs Vital signs: Vital Signs Temp 102.0 F H 11/05/22 07:02 Pulse 74 11/05/22 07:02 Resp 18 11/05/22 07:02 BP 118/70 11/05/22 07:02 Pulse Ox 97 11/05/22 07:02 FiO2 Intake & Output 11/04/22 11/05/22 11/05/22 18:59 06:59 18:59 Other: Voiding Method Self-Catheterization Self-Catheterization # Voids 4 2 - Exam GENERAL: The patient is alert and oriented x3, not in any acute distress. Well developed, well nourished. HEENT: Pupils are round and equally reacting to light. EOMI. No scleral icterus. No conjunctival pallor. Normocephalic, atraumatic. No pharyngeal erythema. No thyromegaly. CARDIOVASCULAR: S1 and S2 present. No murmurs, rubs, or gallops. PULMONARY: Chest is clear to auscultation, no wheezing or crackles. ABDOMEN: Soft, nontender, nondistended, normoactive bowel sounds. No palpable organomegaly. MUSCULOSKELETAL: No joint swelling or deformity. EXTREMITIES: No cyanosis, clubbing, or pedal edema. -NEUROLOGICAL: Gross neurological examination did not reveal any focal deficits. Patient bedbound and has paralysis in the lower half of her body SKIN: No rashes. no petechiae. - Labs CBC & Chem 7: 11/04/22 07:05 11/04/22 07:05 Labs: Abnormal Lab Results - Last 24 Hours (Table) 11/04/22 Range/Units 07:05 Neutrophils # (Manual) 18.46 H (2.00-8.90) X 10*3/uL Eosinophils # (Manual) 0 L (0.04-0.35) X 10*3/uL Basophils # (Manual) 0.22 H (0.00-0.10) X 10*3/uL Microbiology - Last 24 Hours (Table) 11/03/22 10:45 Blood Culture - Preliminary Blood 11/03/22 10:44 Blood Culture - Preliminary Blood 11/03/22 12:09 Urine Culture - Final Urine,Voided Assessment and Plan Assessment: Acute urinary tract infection Sepsis secondary to above History of spinal cord injury with bed-bound Plan: Continue with ceftriaxone repeat UA urine culture Order cxr and ct of abdomen and pelvis case was discussed with Infectious disease consult Continue with normal saline currently 75 milliliters per hour Labs and medication were reviewed.. Continue same treatment. Continue with symptomatic treatment. Resume home medication. Monitor labs and vitals. DVT and GI prophylaxis. Further recommendations as per clinical course of the patie nt DVT prophylaxis: Subcutaneous heparin GI Prophylaxis: Pepcid Prognosis is guarded
[2022-11-05] MEDS ORDERED: SODIUM CHLORIDE 0.9% 1,000 ML IV ONE (12:41)
--- NOTE | 2022-11-05 12:47 | P.PN ---
Subjective Progress Note Date: 11/05/22 Principal diagnosis: Sepsis/UTI Patient is a 37-year-old female with a past medical history significant for T2 spinal cord injury patient did have a urinary retention req uiring self-catheterization, admitted to the hospital with sepsis concerning for urinary source On today's evaluation that is 11/05/2022, the patient did spiked another fever 102F this morning , the patient is complaining of feeling bloated and didn't have any bowel movement but no nausea no vomiting no chest pain shortness of breath or cough Objective - Vital Signs Vital signs: Vital Signs Temp 102.0 F H 11/05/22 07:02 Pulse 74 11/05/22 07:02 Resp 18 11/05/22 07:02 BP 118/70 11/05/22 07:02 Pulse Ox 97 11/05/22 07:02 FiO2 Intake & Output 11/04/22 11/05/22 11/05/22 18:59 06:59 18:59 Other: Voiding Method Self-Catheterization Self-Catheterization # Voids 4 2 - Exam GENERAL DESCRIPTION: A middle-age female lying in bed in no distress RESPIRATORY SYSTEM: Unlabored breathing , decreased breath sounds at bases HEART: S1 S2 regular rate and rhythm , ABDOMEN: Soft , no tenderness EXTREMITIES: No edema feet - Labs CBC & Chem 7: 11/04/22 07:05 11/04/22 07:05 Labs: Abnormal Lab Results - Last 24 Hours (Table) 11/04/22 Range/Units 07:05 Neutrophils # (Manual) 18.46 H (2.00-8.90) X 10*3/uL Eosinophils # (Manual) 0 L (0.04-0.35) X 10*3/uL Basophils # (Manual) 0.22 H (0.00-0.10) X 10*3/uL Microbiology - Last 24 Hours (Table) 11/03/22 10:45 Blood Culture - Preliminary Blood 11/03/22 10:44 Blood Culture - Preliminary Blood 11/03/22 12:09 Urine Culture - Final Urine,Voided Assessment and Plan (1) Sepsis Current Visit: Yes Status: Acute Code(s): A41.9 - SEPSIS, UNSPECIFIED ORGANISM SNOMED Code(s): 09334314 (2) UTI (urinary tract infection) Current Visit: Yes Status: Acute Code(s): N39.0 - URINARY TRACT INFECTION, SITE NOT SPECIFIED SNOMED Code(s): 39207927 Plan: 1patient presented hospital with sepsis in this patient who did have fever elevated white count tachycardia patient did have a history of urinary retention requiring self-catheterization and cloudy urine concerning for complicated UTI likely from enteric gram-negative pathogen failing outpatient oral amoxicillin therapy 2- ultrasound of the kidney and the bladder area, patient has features of cystitis atrophic left kidney and no right-sided hydronephrosis 3patient with persistent fever we will repeat CT of abdominal pelvis blood cultures and urine cultures will be repeated. Will switch antibiotic therapy to cefepime and monitor clinical course closely Time with Patient: Less than 30
[2022-11-05 13:13] LABS: Basophils % (A) 0 %; Eosinophils # (A) 0.1 k/uL (0-0.7); Eosinophils % (A) 1 %; HCT 34.1 % (34.0-46.0); HGB 10.8 gm/dL (11.4-16.0); Lymphocytes # (A) 1.9 k/uL (1.0-4.8); Lymphocytes % (A) 19 %; MCH 28.7 pg (25.0-35.0); MCHC 31.8 g/dL (31.0-37.0); MCV 90.2 fL (80.0-100.0); Mean Platelet Volume 7.5; Monocytes # (A) 0.5 k/uL (0-1.0); Monocytes % (A) 5 %; Neutrophils # (A) 7.4 k/uL (1.3-7.7); Neutrophils % (A) 72 %; Platelet Count 296 k/uL (150-450); RBC 3.78 m/uL (3.80-5.40); RDW 13.9 % (11.5-15.5); WBC 10.3 k/uL (3.8-10.6)
--- NOTE | 2022-11-05 13:38 | XR ---
EXAMINATION TYPE: XR chest 1V portable DATE OF EXAM: 11/05/2022 COMPARISON: NONE HISTORY: Leukocytosis TECHNIQUE: Single frontal view of the chest is obtained. FINDINGS: Bilateral lower lobe infiltrate and small effusion greater on the right. There is postsurg ical change overlying the vertebral column and within the left upper quadrant. There is no pneumothor ax. There is no overt failure. Traumatic change involving the right rib cage. IMPRESSION: Bilateral lower lobe infiltrate and small effusion. Provided for previous right-sided ri b fracture at the level of the approximate right ninth rib posterior laterally.
[2022-11-05] MEDS: CEFEPIME 2 GM in SODIUM CHLORIDE 0.9% 100 ML IVPB SCH ×2 (13:48→20:43)
[2022-11-05] MEDS: IOPAMIDOL CONTRAST (ORAL USE) VIAL PO PRN ×2 (14:07→15:07)
[2022-11-05 15:59] LABS: Appearance,Urine Clear (Clear); Bilirubin,Urine Negative (Negative); Blood,Urine Negative (Negative); Color,Urine Yellow; Glucose,Urine (UA) Negative (Negative); Ketones,Urine Trace (Negative); Leukocyte Esterase,Urine Trace (Negative); Mucus,Urine Rare /hpf; Nitrite,Urine Negative (Negative); Protein,Urine 1+ (Negative); RBC,Urine 5 /hpf (0-5); Specific Gravity,Urine 1.022 (1.001-1.035); Squamous Epithelial Cell,Urine <1 /hpf (0-4); Urobilinogen,Urine <2.0 mg/dL (<2.0); WBC,Urine 1 /hpf (0-5)
--- NOTE | 2022-11-05 16:06 | CT ---
EXAMINATION TYPE: CT abdomen pelvis wo con DATE OF EXAM: 11/05/2022 COMPARISON: None HISTORY: 37-year-old female sepsis CT DLP: 482.3 mGycm. Automated exposure control for dose reduction was used. TECHNIQUE: Contiguous axial scanning of the abdomen and pelvis without IV contrast. Coronal and sagit zoila reconstructions performed. FINDINGS: Heart normal size without pericardial effusion. Small bilateral pleural effusions with some adjacent atelectasis. Calcified granuloma within the mid liver. There is moderate circumferential gallbladder wall thickening demonstrated. Adrenal glands and pancreas show no gross abnormality by noncontrast CT. Atretic left kidney. Left upper quadrant splenules. Additional subphrenic nodularity on the right and right posterior 10th rib deformity. Nodularity here measures up to 5.0 cm wide. Unclear if this represents distinct nodul es or nodular hepatic contour. The right kidney appears edematous with perinephric edema tracking inferiorly down the right retroper itoneum. No hydronephrosis. No dilated small bowel or free air. Mild to moderate stool. No pericolonic inflammatory change. Bladder is nondistended but shows moderate circumferential wall thickening. Mild to moderate anterior pelvic ascites is present. Uterus is retroverted. No pelvic lymphadenopathy seen. Bones: Posterior lower thoracic fusion hardware partially seen. IMPRESSION: 1. Atretic left kidney. The right kidney appears edematous with perinephric edema and edema tracking down the right retroperitoneum. Correlate for potential underlying pyelonephritis. 2. Nonspecific diffuse gallbladder wall thickening. Given the small bilateral pleural effusions and pelvic ascites, this may be secondary to fluid overload state/third spacing rather than acute cholecy stitis. Correlate for any right upper quadrant symptoms. HIDA scan if clinically indicated. 3. Left upper quadrant splenules. There is additional nodularity in the right subphrenic region ingris uring up to 5.0 cm with overlying 10th rib deformity. Unclear if this is posttraumatic irregularity o f the posterior liver margin. Correlate for any relevant history or known diagnosis. Otherwise, recom mend three-month follow-up contrast enhanced MRI to further evaluate. 4. Moderate circumferential bladder wall thickening. Correlate for possible cystitis.
--- NOTE | 2022-11-05 18:54 | CDI ---
Documentation Clarification Form Date: 11/05/2022 6:35:52 PM From: Princess Cline RN CCDS Phone: [phone] Admit Date: 11/03/2022 1:53:00 PM Patient Name: Lauren Monteiro Visit Number: [id number] Discharge Date: ATTENTION: The Clinical Documentation Specialists (CDI) and [facility] Coding Staff appreciate your assistance in clarifying documentation. Please respond to the clarification below the line at the bottom and electronically sign. The CDI & [facility] Coding staff will review the response and follow-up if needed. Please note: Queries are made part of the Legal Health Record. If you have any questions, please contact the author of this message via ITS. Dr. Rey Griggs UTI is documented 11/03,H&P and patient requires self-catheterization for urine retention. Additional clarification regarding the etiology of the UTI is requested. History/Risk Factors: 37-year-old Female presents to the ED with concern for worsening urinary tract infection. The patient went to urgent care Tuesday for urinary tract infection symptoms and was placed on amoxicillin which she has been taking as directed. Medical History: Spinal cord injury and UTIs. Clinical Indicators: 11/03, VSS: B/P 97/48; HR 110; Temp 100.5 F Oral; RR 2; SpO2 97% room air 11/03, H&P: Shes been having symptoms like nausea, generalized body aches, chills. Also she thinks she has UTI because she got them frequently as she does straight catheters frequently. Urinalysis: 11/03 Cloudy, Protein 2+, Ketones trace, Blood trace, Leukocyte Esterase Large, Wbc 77, Bacteria rare, Mucus rare. Urine culture: 11/03 No growth after 18 hours Lab results: 11/03 Wbc 27.8 and Neutrophils 24.6 Treatment: 11/03 0.9NS 1L IV Bolus; 11/03 Levofloxacin IVPB x 1; 11/03 11/05 Ceftriaxone IVPB Daily 11/05 Cefepime IVPB Q8H; 11/05 0.9NS 1L IV Bolus. Please clarify the etiology of the UTI, if known: [ ] UTI 2/2 Self Catheterization [ ] UTI not related to catheter [ ] Other condition, please specify [ ] Unable to determine (Template Last Revised: September 2020) UTI /2 Self Catheterization MTDD
[2022-11-05] MEDS: KETOROLAC 15 MG/ML 1 ML VIAL IVP PRN (21:18)
[2022-11-06] MEDS: ACETAMINOPHEN TAB 325 MG TAB PO PRN ×3 (03:37→19:55)
[2022-11-06] MEDS: CEFEPIME 2 GM in SODIUM CHLORIDE 0.9% 100 ML IVPB SCH ×3 (03:43→19:54)
[2022-11-06] MEDS: SODIUM CHLORIDE 0.9% 1,000 ML IV SCH ×2 (05:04→18:33)
[2022-11-06] MEDS: SIMETHICONE 40 MG/0.6 ML DROPS 2,000 MG/30 ML BOTTLE PO PRN ×2 (05:14→19:55)
--- NOTE | 2022-11-06 07:47 | XR ---
EXAMINATION TYPE: XR abdomen 1V DATE OF EXAM: 11/06/2022 6:21 AM INDICATION: Patient age:Female; 37 years old; Reason for study: ABD discomfort; COMPARISON: None. TECHNIQUE: One radiographic view of the abdomen was obtained. FINDINGS: High-density contrast seen throughout the his no evidence for obstruction. Partially visual ized fixation hardware in the thoracic spine appears intact. Structures are intact. Right upper quadr ant calcification could represent a gallstone. Bowel gas pattern has a nonspecific bowel gas pattern with stool seen within the rectum. IMPRESSION: Nonspecific bowel gas pattern without radiographic evidence for acute process.
[2022-11-06] MEDS: OXYBUTYNIN 15 MG TAB.ER.24 PO SCH ×2 (08:41→19:55)
[2022-11-06] MEDS: BACLOFEN 10 MG TAB PO SCH ×2 (08:41→19:55)
[2022-11-06] MEDS: GABAPENTIN 100 MG CAP PO SCH ×2 (08:41→19:55)
[2022-11-06] MEDS: HEPARIN SODIUM,PORCINE/PF 5,000 UNIT/0.5 ML SYRINGE SQ SCH ×2 (08:41→19:55)
[2022-11-06] MEDS: FAMOTIDINE 20 MG TAB PO SCH ×2 (08:41→19:55)
[2022-11-06 09:25] LABS: Basophils # (A) 0.06 X 10*3/uL (0.00-0.10); Basophils % (A) 0.8 %; Eosinophils # (A) 0.19 X 10*3/uL (0.04-0.35); Eosinophils % (A) 2.5 %; HCT 28.8 % (37.2-46.3); HGB 9.5 g/dL (12.0-15.0); Immature Grans, Automated 0.7 %; Lymphocytes # (A) 1.77 X 10*3/uL (0.90-5.00); Lymphocytes % (A) 23.2 %; MCH 28.7 pg (27.0-32.0); Mean Platelet Volume 10.1 fL (9.5-12.2); Monocytes # (A) 1.05 X 10*3/uL (0.20-1.00); Monocytes % (A) 13.8 %; NRBC Per 100 WBC 0 /100 WBCS (0.0-0.0); Platelet Count 279 X 10*3/uL (140-440); RBC 3.31 X 10*6/uL (4.10-5.20); RDW 14.5 % (11.5-14.5); WBC 7.62 X 10*3/uL (4.50-10.00)
[2022-11-06 09:47] LABS: ALT 17 U/L (8-44); AST 9 U/L (13-35); African American GFR (CKD) 128.3 (60.0-200.0); Alkaline Phosphatase 91 U/L (41-126); Bilirubin, Conjugated <0.20 mg/dL (0.20-0.40); Blood Urea Nitrogen 11.2 mg/dL (9.0-27.0); Calcium 8.2 mg/dL (8.7-10.3); Carbon Dioxide 19.4 mmol/L (20.0-27.5); Chloride 113 mmol/L (96-109); Globulin 2.3 g/dL (1.6-3.3); Glucose 99 mg/dL (70-110); Non-African American GFR(CKD) 110.7 (60.0-200.0); Potassium 3.6 mmol/L (3.5-5.5); Sodium 142 mmol/L (135-145); Total Protein 5.3 g/dL (6.2-8.2)
[2022-11-06] MEDS ORDERED: ONDANSETRON 4 MG/2 ML VIAL IVP PRN (10:15)
[2022-11-06] MEDS: BUTALB/APAP/CAFF 50-325-40MG TAB PO PRN (10:23)
--- NOTE | 2022-11-06 11:01 | P.PN ---
Subjective Progress Note Date: 11/06/22 Principal diagnosis: Sepsis/UTI Patient is a 37-year-old female with a past medical history significant for T2 spinal cord injury patient did have a urinary retention req uiring self-catheterization, admitted to the hospital with sepsis concerning for urinary source On today's evaluation that is 11/06/2022, the patient fever pattern has improved and did have a low-grade fever 100F earlier this morning , the patient is feeling slightly better today still complaining of some discomfort to the right flank area, no nausea vomiting no chest pain shortness of breath or cough no diarrhea Objective - Vital Signs Vital signs: Vital Signs Temp 99.6 F 11/06/22 07:06 Pulse 64 11/06/22 07:06 Resp 16 11/06/22 07:06 BP 119/74 11/06/22 07:06 Pulse Ox 96 11/06/22 07:06 FiO2 Intake & Output 11/05/22 11/06/22 11/06/22 18:59 06:59 18:59 Intake Total 1700 1984 Balance 1700 1984 Intake: Intake, IV Titration 1700 1025 Amount Cefepime 2 gm In Sodium 100 200 Chloride 0.9% 100 ml @ 25 mls/hr IVPB Q8HR@0400, 1200,2000 [facility] Rx#: [id number] Sodium Chloride 0.9% 1, 600 825 000 ml @ 75 mls/hr IV . [id number] [facility] Rx#:[id number] Sodium Chloride 0.9% 1, 1000 000 ml @ 999 mls/hr IV . Q1H1M [facility] Rx#:[id number] Oral 960 Other: Voiding Method Self-Catheterization Bedside Commode Self-Catheterization # Voids 4 4 - Exam GENERAL DESCRIPTION: A middle-age female lying in bed in no distress RESPIRATORY SYSTEM: Unlabored breathing , decreased breath sounds at bases HEART: S1 S2 regular rate and rhythm , ABDOMEN: Soft , no tenderness EXTREMITIES: No edema feet - Labs CBC & Chem 7: 11/06/22 06:38 11/06/22 06:38 Labs: Abnormal Lab Results - Last 24 Hours (Table) 11/05/22 11/05/22 11/05/22 Range/Units 12:58 12:58 15:47 RBC 3.78 L (3.80-5.40) m/uL Hgb 10.8 L (11.4-16.0) gm/dL C-Reactive Protein 13.5 H (<1.0) mg/dL Urine Protein 1+ H (Negative) Urine Ketones Trace H (Negative) Ur Leukocyte Esterase Trace H (Negative) Urine Mucus Rare H (None) /hpf Microbiology - Last 24 Hours (Table) 11/03/22 10:45 Blood Culture - Preliminary Blood 11/03/22 10:44 Blood Culture - Preliminary Blood Assessment and Plan (1) Sepsis Current Visit: Yes Status: Acute Code(s): A41.9 - SEPSIS, UNSPECIFIED ORGANISM SNOMED Code(s): 54288489 (2) UTI (urinary tract infection) Current Visit: Yes Status: Acute Code(s): N39.0 - URINARY TRACT INFECTION, SITE NOT SPECIFIED SNOMED Code(s): 84005001 Plan: 1patient presented hospital with sepsis in this patient who did have fever elevated white count tachycardia patient did have a history of urinary retention requiring self-catheterization and cloudy urine concerning for complicated UTI likely from enteric gram-negative pathogen failing outpatient oral amoxicillin therapy 2- ultrasound of the kidney and the bladder area, patient has features of cystitis atrophic left kidney and no right-sided hydronephrosis, patient did have a CT abdominal pelvis compared to yesterday concerning for right-sided pyelonephritis and no evidence of any hydronephrosis or abscess, the patient white count has normalized repeat urine is clear blood cultures so far negative 3patient to continue with cefepime and monitor clinical course closely Multiple questions concerned were answered Time with Patient: Less than 30
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
[2022-11-07] MEDS: CEFEPIME 2 GM in SODIUM CHLORIDE 0.9% 100 ML IVPB SCH ×3 (04:19→20:41)
[2022-11-07] MEDS: ACETAMINOPHEN TAB 325 MG TAB PO PRN ×2 (04:21→20:48)
[2022-11-07] MEDS: HEPARIN SODIUM,PORCINE/PF 5,000 UNIT/0.5 ML SYRINGE SQ SCH ×2 (07:35→20:42)
[2022-11-07] MEDS: OXYBUTYNIN 15 MG TAB.ER.24 PO SCH ×2 (07:38→20:42)
[2022-11-07] MEDS: GABAPENTIN 100 MG CAP PO SCH ×2 (07:38→20:42)
[2022-11-07] MEDS: FAMOTIDINE 20 MG TAB PO SCH ×2 (07:38→20:42)
[2022-11-07] MEDS: BACLOFEN 10 MG TAB PO SCH ×2 (07:38→20:42)
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
[2022-11-07] MEDS: BUTALB/APAP/CAFF 50-325-40MG TAB PO PRN (19:23)
[2022-11-08] MEDS: CEFEPIME 2 GM in SODIUM CHLORIDE 0.9% 100 ML IVPB SCH ×2 (03:33→12:13)
[2022-11-08] MEDS: BACLOFEN 10 MG TAB PO SCH ×2 (08:50→20:35)
[2022-11-08] MEDS: FAMOTIDINE 20 MG TAB PO SCH ×2 (08:50→20:35)
[2022-11-08] MEDS: GABAPENTIN 100 MG CAP PO SCH ×2 (08:50→20:35)
[2022-11-08] MEDS: HEPARIN SODIUM,PORCINE/PF 5,000 UNIT/0.5 ML SYRINGE SQ SCH ×2 (08:50→20:35)
[2022-11-08] MEDS: OXYBUTYNIN 15 MG TAB.ER.24 PO SCH ×2 (08:50→20:35)
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
--- NOTE | 2022-11-08 12:38 | P.PN ---
Subjective Progress Note Date: 11/04/22 Principal diagnosis: Sepsis/UTI Patient is a 37-year-old female with a past medical history significant for T2 spinal cord injury patient did have a urinary retention req uiring self-catheterization, admitted to the hospital with sepsis concerning for urinary source On today's evaluation that is 11/04/2022, the patient did have another fever 100F this morning however the patient mentioned feeling slightly better not feeding as nauseated no chest pain shortness of breath or cough no diarrhea Objective - Vital Signs Vital signs: Vital Signs Temp 100 F H 11/04/22 07:17 Pulse 60 11/04/22 08:30 Resp 18 11/04/22 08:30 BP 116/63 11/04/22 07:17 Pulse Ox 97 11/04/22 07:17 FiO2 Intake & Output 11/03/22 11/04/22 11/04/22 18:59 06:59 18:59 Intake Total 130 480 Balance 130 480 Weight 68.039 kg Intake: Intake, IV Titration 130 Amount Sodium Chloride 0.9% 1, 130 000 ml @ 130 mls/hr IV . [id number] STA Rx#:[id number] Oral 480 Other: Voiding Method Self-Catheterization Self-Catheterization Self-Catheterization # Voids 3 - Exam GENERAL DESCRIPTION: A middle-age female lying in bed in no distress RESPIRATORY SYSTEM: Unlabored breathing , decreased breath sounds at bases HEART: S1 S2 regular rate and rhythm , ABDOMEN: Soft , no tenderness EXTREMITIES: No edema feet - Labs CBC & Chem 7: 11/04/22 07:05 11/04/22 07:05 Labs: Abnormal Lab Results - Last 24 Hours (Table) 11/03/22 11/03/22 11/03/22 Range/Units 10:44 10:44 12:09 WBC 27.8 H (3.8-10.6) k/uL Neutrophils # 24.6 H (1.3-7.7) k/uL Lymphocytes # 0.9 L (1.0-4.8) k/uL Monocytes # 1.8 H (0-1.0) k/uL Potassium 2.9 L (3.5-5.1) mmol/L Chloride (98-107) mmol/L Carbon Dioxide 19 L (22-30) mmol/L BUN 24 H (7-17) mg/dL Creatinine 1.08 H (0.52-1.04) mg/dL Glucose (74-99) mg/dL Calcium (8.4-10.2) mg/dL Urine Appearance Cloudy H (Clear) Urine Protein 2+ H (Negative) Urine Ketones Trace H (Negative) Urine Blood Trace H (Negative) Ur Leukocyte Esterase Large H (Negative) Urine WBC 77 H (0-5) /hpf Urine WBC Clumps Few H (None) /hpf Ur Squamous Epith Cells 10 H (0-4) /hpf Urine Bacteria Rare H (None) /hpf Urine Mucus Rare H (None) /hpf 11/04/22 Range/Units 07:05 WBC (3.8-10.6) k/uL Neutrophils # (1.3-7.7) k/uL Lymphocytes # (1.0-4.8) k/uL Monocytes # (0-1.0) k/uL Potassium (3.5-5.1) mmol/L Chloride 113 H (98-107) mmol/L Carbon Dioxide 16 L (22-30) mmol/L BUN 22 H (7-17) mg/dL Creatinine (0.52-1.04) mg/dL Glucose 65 L (74-99) mg/dL Calcium 8.1 L (8.4-10.2) mg/dL Urine Appearance (Clear) Urine Protein (Negative) Urine Ketones (Negative) Urine Blood (Negative) Ur Leukocyte Esterase (Negative) Urine WBC (0-5) /hpf Urine WBC Clumps (None) /hpf Ur Squamous Epith Cells (0-4) /hpf Urine Bacteria (None) /hpf Urine Mucus (None) /hpf Microbiology - Last 24 Hours (Table) 11/03/22 12:09 Urine Culture - Preliminary Urine,Voided Assessment and Plan (1) Sepsis Current Visit: Yes Status: Acute Code(s): A41.9 - SEPSIS, UNSPECIFIED ORGANISM SNOMED Code(s): 64869547 (2) UTI (urinary tract infection) Current Visit: Yes Status: Acute Code(s): N39.0 - URINARY TRACT INFECTION, SITE NOT SPECIFIED SNOMED Code(s): 55056940 Plan: 1patient presented hospital with sepsis in this patient who did have fever elevated white count tachycardia patient did have a history of urinary retention requiring self-catheterization and cloudy urine concerning for complicated UTI likely from enteric gram-negative pathogen failing outpatient oral amoxicillin therapy 2- ultrasound of the kidney and the bladder area, patient has features of cystitis atrophic left kidney and no right-sided hydronephrosis 3patient to continue with Rocephin 2 g daily while waiting for the cultures to finalize Time with Patient: Less than 30
--- NOTE | 2022-11-08 13:24 | P.DS ---
Providers Date of admission: 11/03/22 13:53 Expected date of discharge: 11/08/22 Attending physician: Rey Griggs MD Consults: 11/03/22 13:29 Consult Physician Urgent Consulting Provider: Ganesh Gu Consult Reason/Comments: uti Do you want consulting provider notified?: Yes 11/07/22 17:42 Consult Physician Routine Consulting Provider: Rico Lentz Consult Reason/Comments: liver irrigularity mass Do you want consulting provider notified?: Yes, Notify in am Primary care physician: Jose Alejandro Haq Hospital Course: Discharge diagnoses; Acute urinary tract infection Sepsis secondary to above History of spinal cord injury with bed-bound Posterior liver irregularity about 5 cm, r Hospital course; This is a pleasant 37 years old female with past medical history of a spinal cord injury in 2003, she is wheelchair-bound She's been having symptoms like nausea, generalized body aches, chills. Also she thinks she has UTI because she got them frequently as she do straight Frequently. Her urine looks cloudy but she denies dysuria or urgency. She wants to urgent care were given her amoxicillin but she got worse over the last 2 days. Patient has low-grade fever and blood pressure borderline. She has leukocytosis 27.8, rest of CBC is unremarkable Flow potassium 2.9, creatinine 1.0, so BMP and liver enzymes are unremarkable Analysis is suspicious for infection. And emergency room she was started on Levaquin 11/04/2022 Patient underwent general alert. Lethargic. She has poor appetite. No pain. She had low-grade temperature this morning 100. Blood pressure low-normal. Renal ultrasound showing no hydronephrosis but cystitis She is kept on ceftriaxone 2 g and normal saline 75 mL/h Urine culture is pending 11/05/2022 Patient still generally weak for malaise, no chest pain or coughing or dyspnea, she has some abdominal bloating. No much urinary symptoms. She still have fever 102 today and leukocytosis 21,000. Urine cultures came back negative. Abdomen Nontender but bloated. We will repeat Urine analysis, we will order chest x-ray. Also we'll order CT of the abdomen and pelvis with oral contrast Patient has lost her IV access, midline ordered. Discussed with staff 11/06/2022 Patient condition was worsening yesterday with severe fever and leukocytosis therefore CT of the abdomen and pelvis was obtained as belowCT of the abdomen and pelvis: Without IV contrast, 1.atretic left kidney and possible right pyelonephritis, 2. Diffuse gallbladder wall thickening could be secondary to fl uid overload rather than acute cholecystitis, 3.left upper quadrant splenules, there is additional nodularity in the right subphrenic region measuring up to 5 cm with overlying 10th rib deformity and a fair (posttraumatic irregularity of the posterior liver margin. Correlate for any relevant history of known diagnosis otherwise recommend 3 month follow-up contrast enhanced MRI to further evaluate. Forgot Circumferential bladder wall thickening consistent with cystitis Today she is getting better, with less fever, leukocytosis resolved, she is only complaining of from headache and Fioricet as provided. No other new complaints 11/07/2022 Indication infection and sepsis improving, her fever is improving as well as leukocytosis. WBC is back to normal. Patient still receiving IV antibiotics in the form of Zosyn. She denies any other symptoms. She reports some bloating in her belly complaining also from constipation and she declines further stool softeners. Patient informed about Computed tomography scan reported as nodularity in the right sump phrenic region measuring up to 5.0 cm with overlying 10th rib deformity. And if there is this is possible metastatic irregularity of the po sterior liver margin. Also informed about the recommendation by residential roofer to check MRI in 3 months with IV contrast and she verbalized understanding and acceptance. Risks including but not limited to tomorrow For her. Patient also informed her going to consult hematology/oncology team and also she can be referred to outpatient GI service. 11/08. Patient seen and examined. ID recommended discharging patient on oral Ceftin. Hematology oncology to evaluate the patient and recommended patient to get MRI liver, following that patient can be discharged from their perspective. PHYSICAL EXAMINATION: GENERAL: The patient is alert and oriented x3, not in any acute distress. Well developed, well nourished. HEENT: Pupils are round and equally reacting to light. EOMI. No scleral icterus. No conjunctival pallor. Normocephalic, atraumatic. No pharyngeal erythema. No thyromegaly. CARDIOVASCULAR: S1 and S2 present. No murmurs, rubs, or gallops. PULMONARY: Chest is clear to auscultation, no wheezing or crackles. ABDOMEN: Soft, nontender, nondistended, normoactive bowel sounds. No palpable organomegaly. MUSCULOSKELETAL: No joint swelling or deformity. EXTREMITIES: No cyanosis, clubbing, or pedal edema. -NEUROLOGICAL: Gross neurological examination did not reveal any focal deficits. Patient bedbound and has paralysis in the lower half of her body SKIN: No rashes. no petechiae. Patient Condition at Discharge: Stable Plan - Discharge Summary Discharge Rx Participant: Yes New Discharge Prescriptions: New cefUROXime axetiL [Ceftin] 500 mg PO BID 12 Days #24 tab Continue Oxybutynin ER [Ditropan Xl] 15 mg PO BID Gabapentin [Neurontin] 100 mg PO BID Baclofen 10 mg PO BID Discontinued Amoxicillin 875 mg PO BID Discharge Medication List Gabapentin [Neurontin] 100 mg PO BID 10/17/18 [History] Oxybutynin ER [Ditropan Xl] 15 mg PO BID 10/17/18 [History] Baclofen 10 mg PO BID 03/04/20 [History] cefUROXime axetiL [Ceftin] 500 mg PO BID 12 Days #24 tab 11/08/22 [Rx] Follow up Appointment(s)/Referral(s): Trixie Ruiz MD [STAFF PHYSICIAN] - 2 Weeks (GI doctor , for your liver irrigularity) Jose Alejandro Haq MD [Primary Care Provider] - 1-2 days Ganesh Gu MD [STAFF PHYSICIAN] - 1 Week
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
[2022-11-08] MEDS ORDERED: DICYCLOMINE 10 MG CAP PO PRN (14:08)
[2022-11-08] MEDS: CLOTRIMAZOLE TROCHE 10 MG TROCHE MUCOUS MEM SCH ×3 (15:49→23:54)
[2022-11-08] MEDS: CEFDINIR 300 MG CAP PO SCH (20:35)
[2022-11-09] MEDS: ACETAMINOPHEN TAB 325 MG TAB PO PRN (04:42)
[2022-11-09] MEDS: CLOTRIMAZOLE TROCHE 10 MG TROCHE MUCOUS MEM SCH ×4 (04:42→21:09)
[2022-11-09] MEDS: CEFDINIR 300 MG CAP PO SCH ×2 (09:57→20:45)
[2022-11-09] MEDS: HEPARIN SODIUM,PORCINE/PF 5,000 UNIT/0.5 ML SYRINGE SQ SCH ×2 (09:57→21:09)
[2022-11-09] MEDS: FAMOTIDINE 20 MG TAB PO SCH ×2 (09:57→20:45)
[2022-11-09] MEDS: OXYBUTYNIN 15 MG TAB.ER.24 PO SCH ×2 (09:57→20:45)
[2022-11-09] MEDS: GABAPENTIN 100 MG CAP PO SCH ×2 (09:57→20:45)
[2022-11-09] MEDS: BACLOFEN 10 MG TAB PO SCH ×2 (09:57→20:45)
[2022-11-09 11:04] LABS: Reticulocyte % 0.6 % (0.5-2.0)
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
[2022-11-09 16:00] VITALS: BP 115/73; PULSE 88; RESP 19; TEMP 98.4
[2022-11-09 16:39] LABS: % Iron Saturation 31.97 (12.00-45.00)
--- NOTE | 2022-11-09 17:27 | P.PN ---
Subjective Progress Note Date: 11/09/22 Principal diagnosis: Liver irregularity In follow-up today patient had no new symptoms to report, no nausea, vomiting, abdominal pain. Still pending MRI Objective - Vital Signs Vital signs: Vital Signs Temp 98.7 F 11/09/22 07:11 Pulse 68 11/09/22 07:11 Resp 16 11/09/22 07:11 BP 122/72 11/09/22 07:11 Pulse Ox 97 11/09/22 07:11 FiO2 Intake & Output 11/08/22 11/09/22 11/09/22 18:59 06:59 18:59 Other: Voiding Method Self-Catheterization Self-Catheterization # Voids 2 - Constitutional General appearance: Present: average body habitus, cooperative, no acute distress - EENT Eyes: Present: anicteric sclerae, EOMI ENT: Present: hearing grossly normal - Respiratory Details: Respirations even and unlabored at rest - Gastrointestinal General gastrointestinal: Present: normal bowel sounds, soft. Absent: absent bowel sounds, decreased bowel sounds, distended, hepatomegaly, hyperactive bowel sounds, organomegaly, rigid, scaphoid, splenomegaly, tenderness, umbilical hernia, ventral hernia - Psychiatric Psychiatric: Present: A&O x's 3, appropriate affect, intact judgment & insight - Labs CBC & Chem 7: 11/06/22 06:38 11/06/22 06:38 Labs: Microbiology - Last 24 Hours (Table) 11/05/22 12:59 Blood Culture - Preliminary Blood 11/03/22 10:45 Blood Culture - Final Blood 11/03/22 10:44 Blood Culture - Final Blood Assessment and Plan (1) Liver nodule Current Visit: Yes Status: Acute Priority: High Code(s): K76.89 - OTHER SPECIFIED DISEASES OF LIVER SNOMED Code(s): 932015628 (2) Normocytic normochromic anemia Current Visit: Yes Status: Acute Priority: Medium Code(s): D64.9 - ANEMIA, UNSPECIFIED SNOMED Code(s): 07959059 Plan: Liver nodule -Discussed with patient the unclear nature of this abnormal contour to her liver and the area around T10. She is not aware of any injury in that area. -No constitutional symptoms -LFTs WNL -The liver MRI ordered to more closely evaluate this abnormal contour to the liver. Pending results for recommendations -Case discussed with Internal Medicine Normocytic, normochromic anemia, mild -Patient was noted to have mild anemia in the chart as far back as 2018 -Anemia workup ordered. -In her age group suspect most likely related to chronic losses from menstrual cycles. Pending results of workup. Further recommendations will follow. Dr. catesests: I have seen and examined patient, performed H&P, developed impression and plan of care. Discussed with dictator. Agree with documentation, dictated as a scribe
--- NOTE | 2022-11-10 07:56 | MR ---
EXAMINATION TYPE: MR liver wo/w con DATE OF EXAM: 11/09/2022 COMPARISON: CT abdomen and pelvis November 05, 2022 HISTORY: Abnormal CT, nodular liver, 10th ribs mass?. CONTRAST: Standard multiplanar, multisequence MRI departmental protocol images were obtained without contrast a nd with 7 mL intravenous Gadavist gadolinium contrast. Imaging performed of the abdomen focusing on the liver. FINDINGS: Liver: Liver is overall normal in size. No significant signal dropout is seen. Punctate calcification on CT less well-seen on MRI. No concerning solid or cystic intrahepatic mass is identified. Lobulate d contour particularly along posterior margin of the liver is redemonstrated. There are curvilinear a nd oval lesions of slightly diminished T1 and increased T2 signal relative to the liver with mass eff ect along the posterior right hepatic lobe of uncertain etiology. Contracted gallbladder with concent alli abnormal wall thickening is seen on current study. No biliary dilatation is identified. Postcontr ast images show homogeneous enhancement of the lobulated posterior upper abdominal masses similar to the adjacent liver. No washout is evident. Other: Tiny bilateral pleural effusions are redemonstrated. Lower right rib deformities are seen bett er on CT versus MRI. Multiple splenule within the left upper quadrant and different MRI T1 and T2 to imaging characteristics compared with the masses posterior to the liver. Pancreas and both adrenal g lands are grossly unremarkable. Atrophic left kidney axial image [address] axial image 26. Right kidney has nonsimple 2 thin-walled cysts nonenhancing cyst lower pole level. There is no a bnormal small or large bowel dilatation. Osseous structures are intact. IMPRESSION: 1. Lobulation with fairly well-circumscribed distinct lesions along the posterior aspect of the super ior right hepatic lobe have MRI signal slightly different from adjacent liver on T1 and T2-weighted i mages. Etiology uncertain but fairly nonaggressive appearance. Findings may be related to trauma as t here is suggestion of congenital and posttraumatic etiology in the lower posterior right ribs on rece nt CT. Homogeneous postcontrast enhancement also favors nonaggressive etiology. Splenosis and endomet rial deposits are in the differential. Other etiologies not excluded. PET-CT follow-up may be benefic ial.
== END 2022-11-09 21:15 | disposition home or self-care (01) | DRG 698 ==
LOC: EC 10:01 → 4SSUR 13:53
PROVIDERS: ADMIT Internal Medicine; ATTEND Internal Medicine
PROC: 05HC33Z Insertion of Infusion Device into Left Basilic Vein, Percutaneous Approach (ICD-10-PCS; principal; 2022-11-05 15:55)
DX: T83.518A Infection and inflammatory reaction due to other urinary catheter, initial encounter (principal); A41.9 Sepsis, unspecified organism; R18.8 Other ascites; B37.0 Candidal stomatitis; K76.89 Other specified diseases of liver; D64.9 Anemia, unspecified; E87.6 Hypokalemia; M95.4 Acquired deformity of chest and rib; E87.70 Fluid overload, unspecified; K59.00 Constipation, unspecified; T24.022A Burn of unspecified degree of left knee, initial encounter; N26.1 Atrophy of kidney (terminal); R33.9 Retention of urine, unspecified; Y73.8 Miscellaneous gastroenterology and urology devices associated with adverse incidents, not elsewhere classified; S24.102S Unspecified injury at T2-T6 level of thoracic spinal cord, sequela; Z98.1 Arthrodesis status; Z28.310 Unvaccinated for COVID-19; Z79.891 Long term (current) use of opiate analgesic; Z79.899 Other long term (current) drug therapy; Z99.3 Dependence on wheelchair; Z87.440 Personal history of urinary (tract) infections; Z74.01 Bed confinement status
CPT/HCPCS: 36410; 36415; 71045; 74018; 74176; 74183; 76770; 76937; 80048; 80053; 80076; 81001; 81025; 82607; 82728; 82747; 83540; 83550; 83605; 83690; 83735; 83880; 84132; 84145; 84703; 85025; 85045; 86140; 87086; 96361; 96365; 96367; 96375; 99291

== ENCOUNTER → 2023-07-11 | Outpatient (CLI) | payer BC ==
[2023-07-11 15:10] LABS: Basophils # (A) 0.07 X 10*3/uL (0.00-0.10); Basophils % (A) 0.9 %; Eosinophils # (A) 0.22 X 10*3/uL (0.04-0.35); Eosinophils % (A) 2.9 %; HCT 37.2 % (37.2-46.3); HGB 11.9 g/dL (12.0-15.0); Lymphocytes # (A) 1.82 X 10*3/uL (0.90-5.00); Lymphocytes % (A) 24.3 %; MCH 28.1 pg (27.0-32.0); MCV 87.9 FL (80.0-97.0); Mean Platelet Volume 10.4 FL (9.5-12.2); Monocytes # (A) 0.79 X 10*3/uL (0.20-1.00); Monocytes % (A) 10.6 %; NRBC Per 100 WBC 0 X 10*3/uL (0.00-0.01); Neutrophils # (A) 4.56 X 10*3/uL (1.80-7.70); Platelet Count 377 X 10*3/uL (140-440); RBC 4.23 X 10*6/uL (4.10-5.20); RDW 13.4 % (11.5-14.5); WBC 7.48 X 10*3/uL (4.50-10.00)
[2023-07-11 15:32] LABS: Chol/HDL Ratio 3.23 Ratio; VLDL Calculation 12.64 mg/dL (5.00-40.00)
[2023-07-11 15:33] LABS: BUN/Creat Ratio 14.57 Ratio (12.00-20.00); Blood Urea Nitrogen 10.2 mg/dL (9.0-27.0); Glucose 77 mg/dL (70-110); LDL Cholesterol,Calculated 113.1 mg/dL (0.0-131.0)
[2023-07-11 15:34] LABS: ALT 14 U/L (8-44); AST 15 U/L (13-35); Albumin 4.2 g/dL (3.8-4.9); Albumin/Globulin Ratio 1.56 Ratio (1.60-3.17); Alkaline Phosphatase 63 U/L (41-126); Calcium 9.3 mg/dL (8.7-10.3); Carbon Dioxide 25.2 mmol/L (21.6-31.8); Chloride 105 mmol/L (96-109); Globulin 2.7 g/dL (1.6-3.3); Potassium 4.6 mmol/L (3.5-5.5); Sodium 140 mmol/L (135-145); Total Bilirubin 0.4 mg/dL (0.3-1.2); Total Protein 6.9 g/dL (6.2-8.2)
== END | disposition home or self-care (01) ==
LOC: LABWHC1 09:10
DX: Z74.09 Other reduced mobility (principal); Z78.9 Other specified health status; S24.102D Unspecified injury at T2-T6 level of thoracic spinal cord, subsequent encounter; Y99.9 Unspecified external cause status
CPT/HCPCS: 36415; 80053; 80061; 82306; 83036; 84443; 84481; 85025

== ENCOUNTER 2024-07-24 09:30 | Emergency (ER) | payer BC ==
[2024-07-24 09:38] VITALS: TEMP 98.5
--- NOTE | 2024-07-24 10:07 | ED ---
Nausea/Vomiting/Diarrhea HPI - General Chief complaint: Nausea/Vomiting/Diarrhea Stated complaint: Vomiting( 38 weeks preg.) Time Seen by Provider: 07/24/24 09:41 Source: patient, RN notes reviewed Mode of arrival: wheelchair Limitations: physical limitation - History of Present Illness Initial comments: This is a 39-year-old female with a history of spinal cord injury and paraplegia, [id number], presented to the emergency department at 38 weeks gestation for complaint of nausea and vomiting over the past 12 hours. She endorses rhinorrhea, dry cough, congestion over the past few days with similar symptoms that her has been experiencing. She endorses chills reported fever. Denies chest pain, heart palpitations, vaginal bleeding or discharge, hematuria, dysuria, abdominal cramping. Patient is concerned for dehydration as she is being induced for at [facility] on Tuesday - Related Data Home Medications Medication Instructions Recorded Confirmed Gabapentin [Neurontin] 100 mg PO BID 10/17/18 11/03/22 Oxybutynin ER [Ditropan XL] 15 mg PO BID 10/17/18 11/03/22 Baclofen 10 mg PO BID 03/04/20 11/03/22 Previous Rx's Medication Instructions Recorded cefuroxime axetiL [Ceftin] 500 mg PO BID 12 Days #24 tab 11/08/22 Allergies Allergy/AdvReac Type Severity Reaction Status Date / Time No Known Allergies Allergy Verified 07/24/24 09:38 Review of Systems ROS Statement: Those systems with pertinent positive or pertinent negative responses have been documented in the HPI. ROS Other: All systems not noted in ROS Statement are negative. Past Medical History Additional Past Medical History / Comment(s): spinal cord injury History of Any Multi-Drug Resistant Organisms: None Reported Date of last positivie culture/infection: 2003 MDRO Source:: hospital Additional Past Surgical History / Comment(s): spinal fusion, spleen embolism Past Anesthesia/Blood Transfusion Reactions: No Reported Reaction Past Psychological History: No Psychological Hx Reported Smoking Status: Never smoker Past Alcohol Use History: None Reported Past Drug Use History: None Reported - Past Family History Mother Family Medical History: Diabetes Mellitus, Hypertension General Exam Limitations: physical limitation Respiratory exam: Present: normal lung sounds bilaterally. Absent: respiratory distress, wheezes, rales, rhonchi, stridor Cardiovascular Exam: Present: regular rate, normal rhythm, normal heart sounds. Absent: systolic murmur, diastolic murmur, rubs, gallop, clicks GI/Abdominal exam: Present: soft, normal bowel sounds. Absent: distended, tenderness, guarding, rebound, rigid Extremities exam: Present: normal inspection, full ROM, normal capillary refill. Absent: tenderness, pedal edema, joint swelling, calf tenderness Back exam: Present: normal inspection Skin exam: Present: warm, dry, intact, normal color. Absent: rash Course Vital Signs 07/24/24 07/24/24 09:33 10:27 Temperature 98.5 F Pulse Rate 86 93 Respiratory 18 15 Rate Blood Pressure 115/78 110/69 O2 Sat by Pulse 100 99 Oximetry Medical Decision Making - Medical Decision Making Was pt. sent in by a medical professional or institution (FEL[facility] Hoyos, STAPLE SHEAR OPERATOR, urgent care, hospital, or [place] health care facility...) When possible be specific @ -No Did you speak to anyone other than the patient for history (EMS, parent, family, police, friend...)? What history was obtained from this source @ -No Did you review nursing and triage notes (agree or disagree)? Why? @ -I reviewed and agree with nursing and triage notes Were old charts reviewed (outside hosp., previous admission, EMS record, old EKG, old radiological studies, urgent care reports/EKG's, [place] health care facility records)? Report findings @ -No old charts were reviewed Differential Diagnosis (chest pain, altered mental status, abdominal pain women, abdominal pain men, vaginal bleeding, weakness, fever, dyspnea, syncope, headache, dizziness, GI bleed, back pain, seizure, CVA, palpatations, mental health, musculoskeletal)? @ -COVID 19, RSV, influenza, pneumonia, acute bronchitis, URI, gastroenteritis, this list is not all inclusive EKG interpreted by me (3pts min.). @ -none X-rays interpreted by me (1pt min.). @ -None done CT interpreted by me (1pt min.). @ -None done U/S interpreted by me (1pt. min.). @ -None done What testing was considered but not performed or refused? (CT, X-rays, U/S, labs)? Why? @ -None What meds were considered but not given or refused? Why? @ -None Did you discuss the management of the patient with other professionals (professionals i.e. , PA, STAPLE SHEAR OPERATOR, lab, RT, psych nurse, social work nurse, labor operator, teacher, naval gunfire liaison officer, case management rn)? Give summary @ -No Was smoking cessation discussed for >3mins.? @ -No Was critical care preformed (if so, how long)? @ -No Were there social determinants of health that impacted care today? How? (Homelessness, low income, unemployed, alcoholism, drug addiction, transportation, low edu. Level, literacy, decrease access to med. care, senior living, rehab)? @ -No Was there de-escalation of care discussed even if they declined (Discuss DNR or withdrawal of care, Hospice)? DNR status @ -No What co-morbidities impacted this encounter? (DM, HTN, Smoking, COPD, CAD, Cancer, CVA, ARF, Chemo, Hep., AIDS, mental health diagnosis, sleep apnea, morbid obesity)? @ -None Was patient admitted / discharged? Hospital course, mention meds given and route, prescriptions, significant lab abnormalities, going to OR and other pertinent info. @ -Discharge. 39-year-old female presenting at 38 weeks gestation for nausea and vomiting.. Physical examination is unremarkable. She is provided with antiemetics and fluids pending laboratory results. Leukocytosis 12.3 and elevated neutrophils at 10.9 likely secondary to emesis. Mild dehydration with a CO2 of 16 and sodium 135. Urine is positive for and with nitrites, leukocyte esterase, bacteria and white cells. Viral testing is negative. Discussed with patient that urinary tract infection is likely and patient states that she does have a history of recurrent urinary tract infections and has a antibiotic drink that she has at home that she takes as needed. All questions have been answered at bedside and strict return parameters were discussed with the patient she is verbalized understanding. Patient is feeling markedly better after medication ministration. Case discussed with Dr. Key Undiagnosed new problem with uncertain prognosis? @ -No Drug Therapy requiring intensive monitoring for toxicity (Heparin, Nitro, Insulin, Cardizem)? @ -No Were any procedures done? @ -No Diagnosis/symptom? @ -gastroenteritis, acute nausea and vomiting Acute, or Chronic, or Acute on Chronic? @ -Acute Uncomplicated (without systemic symptoms) or Complicated (systemic symptoms)? @ -uncomplicated Side effects of treatment? @ -No Exacerbation, Progression, or Severe Exacerbation? @ -No Poses a threat to life or bodily function? How? (Chest pain, [place], [place], pneumonia, PE, COPD, DKA, ARF, appy, cholecystitis, CVA, Diverticulitis, Homicidal, Suicidal, threat to staff... and all critical care pts) @ -No - Lab Data Result diagrams: 07/24/24 10:27 07/24/24 10:27 Lab Results 07/24/24 07/24/24 07/24/24 Range/Units 10: 10: 10: WBC 12.3 H (3.8-10.6) k/uL RBC 3.59 L (3.80-5.40) m/uL Hgb 11.0 L (11.4-16.0) gm/dL Hct 32.3 L (34.0-46.0) % MCV 89.9 (80.0-100.0) fL MCH 30.5 (25.0-35.0) pg MCHC 33.9 (31.0-37.0) g/dL RDW 12.8 (11.5-15.5) % Plt Count 283 (150-450) k/uL MPV 8.9 Neutrophils % 89 % Lymphocytes % 6 % Monocytes % 4 % Eosinophils % 0 % Basophils % 0 % Neutrophils # 10.9 H (1.3-7.7) k/uL Lymphocytes # 0.7 L (1.0-4.8) k/uL Monocytes # 0.5 (0-1.0) k/uL Eosinophils # 0.0 (0-0.7) k/uL Basophils # 0.0 (0-0.2) k/uL Sodium 135 L (137-145) mmol/L Potassium 3.5 (3.5-5.1) mmol/L Chloride 106 (98-107) mmol/L Carbon Dioxide 16 L (22-30) mmol/L Anion Gap 13 mmol/L BUN 10 (7-17) mg/dL Creatinine 0.69 (0.52-1.04) mg/dL Est GFR (CKD-EPI)AfAm >90 (>60 ml/min/1.73 sqM) Est GFR (CKD-EPI)NonAf >90 (>60 ml/min/1.73 sqM) Glucose 88 (74-99) mg/dL Calcium 8.2 L (8.4-10.2) mg/dL Magnesium 1.7 (1.6-2.3) mg/dL Total Bilirubin 0.5 (0.2-1.3) mg/dL AST 21 (14-36) U/L ALT 12 (4-34) U/L Alkaline Phosphatase 120 (38-126) U/L Total Protein 7.0 (6.3-8.2) g/dL Albumin 3.5 (3.5-5.0) g/dL Urine Color Yellow Urine Appearance Cloudy H (Clear) Urine pH 7.0 (5.0-8.0) Ur Specific [place] 1.025 (1.001-1.035) Urine Protein 1+ H (Negative) Urine Glucose (UA) Negative (Negative) Urine Ketones Trace H (Negative) Urine Blood Negative (Negative) Urine Nitrite Positive H (Negative) Urine Bilirubin Negative (Negative) Urine Urobilinogen <2.0 (<2.0) mg/dL Ur Leukocyte Esterase Moderate H (Negative) Urine RBC 1 (0-5) /hpf Urine WBC 7 H (0-5) /hpf Ur Squamous Epith Cells 5 H (0-4) /hpf Urine Bacteria Many H (None) /hpf Urine Mucus Occasional H (None) /hpf Influenza Type A (PCR) (Not Detectd) Influenza Type B (PCR) (Not Detectd) RSV (PCR) (Not Detectd) SARS-CoV-2 (PCR) (Not Detectd) 07/24/24 Range/Units 10:27 WBC (3.8-10.6) k/uL RBC (3.80-5.40) m/uL Hgb (11.4-16.0) gm/dL Hct (34.0-46.0) % MCV (80.0-100.0) fL MCH (25.0-35.0) pg MCHC (31.0-37.0) g/dL RDW (11.5-15.5) % Plt Count (150-450) k/uL MPV Neutrophils % % Lymphocytes % % Monocytes % % Eosinophils % % Basophils % % Neutrophils # (1.3-7.7) k/uL Lymphocytes # (1.0-4.8) k/uL Monocytes # (0-1.0) k/uL Eosinophils # (0-0.7) k/uL Basophils # (0-0.2) k/uL Sodium (137-145) mmol/L Potassium (3.5-5.1) mmol/L Chloride (98-107) mmol/L Carbon Dioxide (22-30) mmol/L Anion Gap mmol/L BUN (7-17) mg/dL Creatinine (0.52-1.04) mg/dL Est GFR (CKD-EPI)AfAm (>60 ml/min/1.73 sqM) Est GFR (CKD-EPI)NonAf (>60 ml/min/1.73 sqM) Glucose (74-99) mg/dL Calcium (8.4-10.2) mg/dL Magnesium (1.6-2.3) mg/dL Total Bilirubin (0.2-1.3) mg/dL AST (14-36) U/L ALT (4-34) U/L Alkaline Phosphatase (38-126) U/L Total Protein (6.3-8.2) g/dL Albumin (3.5-5.0) g/dL Urine Color Urine Appearance (Clear) Urine pH (5.0-8.0) Ur Specific [place] (1.001-1.035) Urine Protein (Negative) Urine Glucose (UA) (Negative) Urine Ketones (Negative) Urine Blood (Negative) Urine Nitrite (Negative) Urine Bilirubin (Negative) Urine Urobilinogen (<2.0) mg/dL Ur Leukocyte Esterase (Negative) Urine RBC (0-5) /hpf Urine WBC (0-5) /hpf Ur Squamous Epith Cells (0-4) /hpf Urine Bacteria (None) /hpf Urine Mucus (None) /hpf Influenza Type A (PCR) Not Detected (Not Detectd) Influenza Type B (PCR) Not Detected (Not Detectd) RSV (PCR) Not Detected (Not Detectd) SARS-CoV-2 (PCR) Not Detected (Not Detectd) Disposition Clinical Impression: Nausea and vomiting, UTI (urinary tract infection) Disposition: HOME SELF-CARE Condition: Good Instructions (If sedation given, give patient instructions): Acute Nausea and Vomiting (ED) Additional Instructions: Please return to the Emergency Department if symptoms worsen or any other conc erns. Is patient prescribed a controlled substance at d/c from ED?: No Referrals: Jose Alejandro Haq MD [Primary Care Provider] - 1-2 days Time of Disposition: 11:45
[2024-07-24] MEDS: SODIUM CHLORIDE 0.9% 1,500 ML IV STA (10:22)
[2024-07-24] MEDS: ONDANSETRON 4 MG/2 ML VIAL IVP STA (10:23)
[2024-07-24 10:30] VITALS: RESP 15
[2024-07-24 10:53] LABS: Appearance,Urine Cloudy (Clear); Bacteria,Urine Many /hpf; Bilirubin,Urine Negative (Negative); Blood,Urine Negative (Negative); Color,Urine Yellow; Glucose,Urine (UA) Negative (Negative); Ketones,Urine Trace (Negative); Leukocyte Esterase,Urine Moderate (Negative); Mucus,Urine Occasional /hpf; Nitrite,Urine Positive (Negative); Protein,Urine 1+ (Negative); RBC,Urine 1 /hpf (0-5); Specific Gravity,Urine 1.025 (1.001-1.035); Squamous Epithelial Cell,Urine 5 /hpf (0-4); Urobilinogen,Urine <2.0 mg/dL (<2.0); WBC,Urine 7 /hpf (0-5)
[2024-07-24 10:58] LABS: Basophils % (A) 0 %; Eosinophils % (A) 0 %; HCT 32.3 % (34.0-46.0); Lymphocytes # (A) 0.7 k/uL (1.0-4.8); Lymphocytes % (A) 6 %; MCH 30.5 pg (25.0-35.0); MCHC 33.9 g/dL (31.0-37.0); MCV 89.9 fL (80.0-100.0); Mean Platelet Volume 8.9; Monocytes # (A) 0.5 k/uL (0-1.0); Monocytes % (A) 4 %; Neutrophils # (A) 10.9 k/uL (1.3-7.7); Neutrophils % (A) 89 %; Platelet Count 283 k/uL (150-450); RBC 3.59 m/uL (3.80-5.40); RDW 12.8 % (11.5-15.5); WBC 12.3 k/uL (3.8-10.6)
[2024-07-24 11:01] LABS: ALT 12 U/L (4-34); AST 21 U/L (14-36); African American GFR (CKD) >90 (>60 ml/min/1.73 sqM); Albumin 3.5 g/dL (3.5-5.0); Alkaline Phosphatase 120 U/L (38-126); Anion Gap 13 mmol/L; Blood Urea Nitrogen 10 mg/dL (7-17); Calcium 8.2 mg/dL (8.4-10.2); Carbon Dioxide 16 mmol/L (22-30); Chloride 106 mmol/L (98-107); Glucose 88 mg/dL (74-99); Magnesium 1.7 mg/dL (1.6-2.3); Non-African American GFR(CKD) >90 (>60 ml/min/1.73 sqM); Potassium 3.5 mmol/L (3.5-5.1); Sodium 135 mmol/L (137-145); Total Bilirubin 0.5 mg/dL (0.2-1.3)
[2024-07-24 11:25] LABS: Influenza A Not Detected (Not Detectd); Influenza B Not Detected (Not Detectd); RSV Not Detected (Not Detectd)
[2024-07-24 12:06] VITALS: PULSE 86
[2024-07-24 12:45] VITALS: BP 112/68
== END 2024-07-24 12:44 | disposition home or self-care (01) ==
LOC: EC 09:30
DX: O23.43 Unspecified infection of urinary tract in pregnancy, third trimester (principal); N39.0 Urinary tract infection, site not specified; O99.613 Diseases of the digestive system complicating pregnancy, third trimester; K52.9 Noninfective gastroenteritis and colitis, unspecified; Z3A.38 38 weeks gestation of pregnancy
CPT/HCPCS: 36415; 80053; 83735; 85025; 81001; 87086; 87636; 99284; 96374; 96361; J2405